=== PATIENT | female | born 1945 | race Caucasian/White ===

== ENCOUNTER 2018-04-17 09:51 | Emergency (ER) | payer MEDICARE ==
[~2018-04-17] VITALS: Ht 165.1 cm; Wt 69.4 kg
[~2018-04-17 09:51] MED LIST: ARICEPT 5 MG TAB5 MG PO; CELEXA20 MG PO; CIPRO500 MG PO; FLAGYL500 MG PO; LEVOTHYROXINE100 MC1 PO; LISINOPRIL10 MG PO; MOBIC15 MG PO; OXYBUTYNIN 5 MG5 M2 PO; PROTONIX40 M1 PO; TYLENOL EXTRA500 MG PO; VITAMIN B COMP1 EACH PO; VITAMIN D1000 UNI1 PO; ZOCOR40 MG PO
[2018-04-17] MEDS ORDERED: MAGOX 400400 MG PO (10:02)
[2018-04-17 10:20] LABS: URINE BILIRUBIN NEGATIVE (Negative); URINE BLOOD TRACE (Negative); URINE CLARITY SL CLOUDY; URINE COLOR YELLOW; URINE GLUCOSE-RANDOM NEGATIVE (Negative); URINE KETONES NEGATIVE (Negative); URINE LEUKOCYTES-REFLEX 1+ (Negative); URINE NITRITE-REFLEX NEGATIVE (Negative); URINE PROTEIN NEGATIVE (Negative); URINE SPECIFIC GRAVITY >= 1.030 (1.005-1.030); URINE UROBILINOGEN 0.2 E.U./dl (0.2-1.0)
[2018-04-17 10:36] LABS: BACTERIA-REFLEX 1-9 Few /HPF (None Seen); CASTS None Seen /LPF (None Seen); CRYSTALS None Seen /LPF (None Seen); MUCUS 4-6 Moderate strn/LPF (None Seen); SQUAMOUS 4-10 Moderate /LPF (0-3); URINE RBC 0-2 Rare /HPF (0-2); URINE WBC-REFLEX 0-5 Rare /HPF (0-5)
[2018-04-17 10:43] LABS: ABSOLUTE EOSINOPHILS 0.2 thou/uL (0.0-0.7); ABSOLUTE MONOCYTES 0.4 thou/uL (0.0-1.2); ABSOLUTE NEUTROPHILS 2.5 thou/uL (1.6-8.1); BASOPHILS 0.8 %; EOSINOPHILS 3.3 %; HEMATOCRIT 37.6 % (37.0-47.0); HEMOGLOBIN 12.6 gm/dL (12.0-15.0); LYMPHOCYTES 39.8 %; MCH 31.5 pg (26.0-34.0); MCHC 33.6 g/dL (28.0-37.0); MCV 93.9 fL (80.0-100.0); MONOCYTES 7.3 %; MPV 6.9 fl. (7.2-11.1); NUCLEATED RBCS 0 /100WBC; PLATELET COUNT* 227 thou/uL (150-400); POLYS 48.8 %; RBC 4.01 mil/uL (4.20-5.00); RDW-CV 12.9 % (10.5-14.5); WBC 5.1 thou/uL (4.0-11.0)
[2018-04-17 10:59] LABS: ANION GAP 6 mmol/L (7-16); BUN 19 mg/dL (7-18); CALCIUM 9.2 mg/dL (8.5-10.1); CHLORIDE 102 mmol/L (98-107); CO2 30 mmol/L (21-32); CREATININE 1.2 mg/dL (0.6-1.3); GLUCOSE 82 mg/dL (70-99); POTASSIUM 3.9 mmol/L (3.5-5.1); SODIUM 138 mmol/L (136-145)
[2018-04-17 11:04] LABS: ALKALINE PHOSPHATASE 74 U/L (46-116); SGOT 26 U/L (15-37); SGPT 22 U/L (30-65); TOTAL BILIRUBIN 1.3 mg/dL (<0.1-1.0); TOTAL PROTEIN 7.5 g/dL (6.4-8.2); TROPONIN-I LEVEL <0.06 ng/mL (<0.06)
[2018-04-17] MEDS ORDERED: ZOFRAN ODT4 MG PO (12:34)
[2018-04-17] MEDS ORDERED: ACETAMINOPHEN-1 EAC1 PO (12:34)
[2018-04-17 13:02] VITALS: BP 131/69
--- NOTE | 2018-04-18 15:36 | EKG ---
[place] [address] ELECTROCARDIOGRAM REPORT Name: CATINA HARPER Room: [facility]#: [id number] Admission: 04/17/18 Attend Phys: Discharge: 04/17/18 Date of : 41 Report #: [id number] THIS REPORT FOR: //name// [facility] ED Test Date: 2018-04-17 Test Time: 10:53:15 Pat Name: CATINA HARPER Department: Room: Gender: F Log Sorting Supervisor: Chapis BRISENO : 1945 Requested By: Amaris Cardoso Order Number: [id number] MD: Ralph Cast Measurements Intervals [place] Rate: 45 P: 49 [place]: 192 QRS: 18 QRSD: 98 T: 46 QT: 499 QTc: 432 Interpretive Statements Sinus bradycardia Baseline wander in lead(s) V3 Compared to ECG 05/03/2017 12:19:55 Sinus rhythm no longer present Electronically Signed On 04-18-2018 15:36:03 WOOLEN TESTER by Ralph Cast [email or web address] <ELECTRONICALLY SIGNED> By: Ralph Cast MD, [facility] 04/18/18 1536 1053 1053 Ralph Cast MD, FACC /EPI
== END 2018-04-17 13:03 | disposition home or self-care (01) ==
LOC: M.ERS 09:51
PROVIDERS: Physician Assistant
DX: K46.9 Unspecified abdominal hernia without obstruction or gangrene (principal); I10 Essential (primary) hypertension; Z88.5 Allergy status to narcotic agent; Z85.3 Personal history of malignant neoplasm of breast; Z90.710 Acquired absence of both cervix and uterus

== ENCOUNTER 2018-05-03 12:53 | Emergency (ER) | payer MEDICARE ==
[~2018-05-03] VITALS: Ht 165.1 cm; Wt 70.3 kg
[~2018-05-03 12:53] MED LIST changes: +ACETAMINOPHEN-1 EAC1 PO; +MAGOX 400400 MG PO; +ZOFRAN ODT4 MG PO
[2018-05-03 13:49] LABS: ABSOLUTE EOSINOPHILS 0.3 thou/uL (0.0-0.7); ABSOLUTE LYMPHOCYTES 1.1 thou/uL (0.8-5.3); ABSOLUTE MONOCYTES 0.6 thou/uL (0.0-1.2); ABSOLUTE NEUTROPHILS 7.6 thou/uL (1.6-8.1); BASOPHILS 0.4 %; EOSINOPHILS 2.9 %; HEMATOCRIT 37.2 % (37.0-47.0); HEMOGLOBIN 12.6 gm/dL (12.0-15.0); LYMPHOCYTES 11.6 %; MCH 31.7 pg (26.0-34.0); MCV 93.1 fL (80.0-100.0); MONOCYTES 6.1 %; MPV 6.9 fl. (7.2-11.1); NUCLEATED RBCS 0 /100WBC; PLATELET COUNT* 225 thou/uL (150-400); RBC 3.99 mil/uL (4.20-5.00); RDW-CV 12.6 % (10.5-14.5); WBC 9.6 thou/uL (4.0-11.0)
[2018-05-03 13:58] LABS: CALCIUM 9.9 mg/dL (8.5-10.1); CREATININE 1.2 mg/dL (0.6-1.3); POTASSIUM 3.5 mmol/L (3.5-5.1)
[2018-05-03 14:33] LABS: ALBUMIN 3.8 g/dL (3.4-5.0); TOTAL BILIRUBIN 1.4 mg/dL (<0.1-1.0); TOTAL PROTEIN 7.8 g/dL (6.4-8.2)
[2018-05-03 15:26] VITALS: BP 157/78
== END 2018-05-03 15:27 | disposition home or self-care (01) ==
LOC: M.ERS 12:53
PROVIDERS: Nurse Practitioner Family
DX: G89.18 Other acute postprocedural pain (principal); R10.9 Unspecified abdominal pain; I10 Essential (primary) hypertension; Z88.5 Allergy status to narcotic agent; Z85.3 Personal history of malignant neoplasm of breast; Z90.710 Acquired absence of both cervix and uterus

== ENCOUNTER → 2018-05-19 | Outpatient (CLI) | payer OTHER | LOC: M.RAD 08:50 | DX: Z12.31 Encounter for screening mammogram for malignant neoplasm of breast (principal) ==

== ENCOUNTER 2018-06-04 12:11 | Inpatient (IN) | payer OTHER ==
[~2018-06-04] VITALS: Ht 165.1 cm; Wt 66.2 kg
[2018-06-04 11:42] VITALS: BP 146/85
[2018-06-04 12:15] VITALS: BP 137/82
[2018-06-04 13:26] LABS: ABSOLUTE BASOPHILS 0.1 thou/uL (0.0-0.2); ABSOLUTE LYMPHOCYTES 1.2 thou/uL (0.8-5.3); ABSOLUTE MONOCYTES 0.6 thou/uL (0.0-1.2); ABSOLUTE NEUTROPHILS 9.6 thou/uL (1.6-8.1); BASOPHILS 0.6 %; EOSINOPHILS 0.4 %; HEMATOCRIT 37.3 % (37.0-47.0); HEMOGLOBIN 12.6 gm/dL (12.0-15.0); LYMPHOCYTES 10.4 %; MCH 30.7 pg (26.0-34.0); MCHC 33.8 g/dL (28.0-37.0); MONOCYTES 5.6 %; NUCLEATED RBCS 0 /100WBC; PLATELET COUNT* 221 thou/uL (150-400); RDW-CV 12.9 % (10.5-14.5); WBC 11.6 thou/uL (4.0-11.0)
[2018-06-04 13:36] LABS: INR 1.1; PROTIME 11.1 Seconds (9.20-11.50)
[2018-06-04 13:38] LABS: ANION GAP 6 mmol/L (7-16); BUN 15 mg/dL (7-18); CALCIUM 9.1 mg/dL (8.5-10.1); CHLORIDE 100 mmol/L (98-107); CO2 29 mmol/L (21-32); CREATININE 1.1 mg/dL (0.6-1.3); GLUCOSE 98 mg/dL (70-99); SODIUM 135 mmol/L (136-145)
[2018-06-04 13:48] LABS: ALBUMIN 3.8 g/dL (3.4-5.0); ALKALINE PHOSPHATASE 90 U/L (46-116); LIPASE 158 U/L (73-393); NT-PRO BRAIN NAT PEPTIDE 127 pg/mL (<300); SGOT 17 U/L (15-37); SGPT 17 U/L (30-65); TOTAL BILIRUBIN 1.3 mg/dL (<0.1-1.0); TOTAL PROTEIN 7.6 g/dL (6.4-8.2); TROPONIN-I LEVEL <0.06 ng/mL (<0.06)
[2018-06-04 16:38] VITALS: BP 144/67
--- NOTE | 2018-06-04 16:54 | EKG ---
[place] [address] ELECTROCARDIOGRAM REPORT Name: CATINA HARPER Room: [address] ADM IN .R.#: [id number] Admission: 06/04/18 Attend Phys: Boone Marino MD Discharge: Date of : 41 Report #: [id number] THIS REPORT FOR: //name// [facility] ED Test Date: 2018-06-04 Test Time: 12:16:42 Pat Name: CATINA HARPER Department: Room: [facility] Gender: Air Dispatcher: Chapis BRISENO : 1945 Requested By: Daniel Alvarado Order Number: [id number] : Adi Jorgensen Measurements Intervals [place] Rate: 54 P: 60 IN: 173 QRS: 24 QRSD: 100 T: 52 QT: 480 QTc: 455 Interpretive Statements Sinus rhythm Nonspecific repol abnormality, diffuse leads Compared to ECG 04/17/2018 10:53:15 Early repolarization now present Sinus bradycardia no longer present Electronically Signed On 06-04-2018 16:54:22 NUISANCE WILDLIFE CONTROL OPERATOR by Adi Jorgensen [email or web address] <ELECTRONICALLY SIGNED> By: Adi Jorgensen MD, [facility] 06/04/18 1654 1216 1216 Adi Jorgensen MD, [facility] /EPI
--- NOTE | 2018-06-04 17:31 | NUR ---
RECIEVIED REPORT FROM KIKO RN IN ER OF EXPECTED ADMISSION AT 1635- DX: SYNCOPE- PT ARRIVED TO UNIT VIA CART AT 1642, SBA TO BED- TIMBER MANAGEMENT ASSISTANT PLACED ORDERED, TRACING SR UPON ADMISSION- PT A&O X3-4, DAUGHTER REPORTS PT TO HAVE DEMENTIA WITH NOTED FORGETFULLNESS- CONTINENT OF BOWEL AND BLADDER WITH OCCASIONLA STRESS INCONTINENTS NOTED- SBA WITH TRANSFERS FOR SAETY- LCTA, DIMINISHED LUNG SOUNDS NOTED- RESP EVEN AND UN-LABORED- VS 98.1 18 146/85 54 96% ON RA- ABD SOFT ROUND NON-TENDER, BS X4 QUADS- PT REPORTS TO HAVE HAD BM THIS AM- 2 ABD HERNIA INCISSIONS NOTED- IV NOTED TO RIGHT FA INTACT AND INTACT- LEFT MASTECTOMY NOTED- REGULAR DIET NOTED WITH GOOD PO INTAKE NOTED WITH DINNER- REPORTS TO WEAR READING GLASSES, NO WITH PT- NOTED TO HAVE UPPER DENTURES IN CUP AT BEDSIDE- SKIN C/D/I- PT DENIES ANY C/O PAIN/DISCOMFORT AT THIS TIME- CALL LIGHT AND PERSONAL BELONGINGS WITH IN REACH- HOURLY ROUNDS IN PLACE R/T SAFETY/NEEDS- ALL NEEDS MET AT THIS TIME-[facility]
[2018-06-04 19:10] VITALS: BP 127/50
--- NOTE | 2018-06-04 22:20 | NUR ---
ASSESSMENT COMPLETE, REFER TO CHARTING FOR DETAILS. TRACING SR ON MONITOR. PT C/O MILD ABDOMINAL PAIN. UP WITH SBA TO BR. VSS. PT DENIES ANY FURTHER NEEDS. HOURLY ROUNDING AND FALL PRECAUTIONS IN PLACE FOR SAFETY. CLWR.
[2018-06-04 23:36] VITALS: BP 144/70
[2018-06-04 23:37] VITALS: BP 151/73; BP 153/73
[2018-06-05 04:00] VITALS: BP 141/64
[2018-06-05 05:07] LABS: ABSOLUTE LYMPHOCYTES 1.7 thou/uL (0.8-5.3); ABSOLUTE MONOCYTES 0.6 thou/uL (0.0-1.2); ABSOLUTE NEUTROPHILS 6.6 thou/uL (1.6-8.1); BASOPHILS 0.2 %; EOSINOPHILS 0.4 %; HEMATOCRIT 34.8 % (37.0-47.0); LYMPHOCYTES 18.5 %; MCH 31.5 pg (26.0-34.0); MCHC 34.5 g/dL (28.0-37.0); MCV 91.5 fL (80.0-100.0); MONOCYTES 6.8 %; MPV 7.5 fl. (7.2-11.1); NUCLEATED RBCS 0 /100WBC; PLATELET COUNT* 195 thou/uL (150-400); POLYS 74.1 %; RBC 3.81 mil/uL (4.20-5.00); RDW-CV 12.7 % (10.5-14.5); WBC 8.9 thou/uL (4.0-11.0)
[2018-06-05 05:21] LABS: CALCIUM 8.8 mg/dL (8.5-10.1)
--- NOTE | 2018-06-05 05:26 | NUR ---
PT HAS RESTED COMFORTABLY T/O THIS SHIFT. ORTHOSTATICS NEGATIVE. CONTINUES TRACING SR ON MONITOR. NO NEW CONCERNS AT THIS TIME. FALL PRECAUTIONS IN PLACE. CLWR.
[2018-06-05 05:28] LABS: POTASSIUM 4.4 mmol/L (3.5-5.1)
[2018-06-05 08:00] VITALS: BP 123/58
--- NOTE | 2018-06-05 11:58 | NUR ---
ASSUMED PT CARE AT 0730 REPORT RECEIVED FROM NURSE PT IS AOX4 FORGRTFUL AND LETHARGIC. COMPLAINS OF DISCOMFORT IN MID ABDOMINAL AREA. VSS. O2 SATURATION ABOVE 95% ON RA. PT LACK APPETITE AND DID NOT CONSUME HER BREAKFAST. DR PERALES IN OOM WITH PT ORDERED CT OF ABM AND PELVIS. PT LEFT FLOOR FOR EXAM AT 0930 AM. PT HAS NO OTHER COMPLAINT AND IS RESTING IN BED. PT HAD ONE EPISODE OF LOOSED STOOL THIS AM. WILL CONTINUE TO MONITOR
[2018-06-05 12:10] VITALS: BP 133/56
[2018-06-05 12:31] VITALS: BP 133/56
[2018-06-05 12:33] VITALS: BP 133/56
[2018-06-05] MEDS ORDERED: PRILOSEC OTC20 MG PO (12:43)
--- NOTE | 2018-06-05 13:52 | NUR ---
INITIAL ASSESSMENT: Pt evaluated for d/c planning needs. Reviewed chart and spoke with nurse and pt. Pt states she lives in house with daughter and was independent with ADL's prior to admission to the hospital. Pt said she uses no DME and has not had home health in the past. Pt plans on returning home on d/c from hospital. Will remain available to assist as needed.
--- NOTE | 2018-06-05 14:16 | CON ---
[address] [address] CONSULTATION Name: MEREDITHCATINA Mychal Room: [address] IN .R.#: [id number] Admission: 06/04/18 Attend Phys: Boone Marino MD Discharge: Date of : 41 Report #: [id number] THIS REPORT FOR: //name// CC: Boone Anne HISTORY OF PRESENT ILLNESS: The patient is a 73-year-old female who was at the book store when she began to experience abdominal pain. The patient has a history of hernia repair in 04/2018. She states that she had pain in her abdomen. She then felt lightheaded. This is the last thing she remembers, she then passed out. I tried to call the patient's daughter, but the call went to voicemail. According to the information in the Emergency Room, the daughter states that the patient's eyes rolled back, although they were open. She then began to shake in her arms and legs and then passed out for a minute or so. Afterward, she returned to normal. The patient has never had an event like this in the past. She typically does not feel lightheaded. She does not feel lightheaded when she stands up. She has no difficulty having her blood drawn. PAST MEDICAL HISTORY: Graves' disease, breast cancer, hypertension, hypothyroidism, arthritis. PAST SURGICAL HISTORY: Back surgery, hysterectomy, carpal tunnel release, left rotator cuff repair, hernia surgery. MEDICATIONS: Levothyroxine 100 mcg daily, lisinopril 10 mg daily, donepezil 10 mg at bedtime, Celexa 20 mg daily, magnesium 400 mg at bedtime, Mobic 15 mg daily. ALLERGIES: OXYCODONE. VITAL SIGNS: Temperature is 36.7, pulse rate 57, respiratory rate 16, blood pressure 144/67, pulse rate 96 on 2 liters nasal cannula. LABORATORY DATA: Hematology: White blood cell count 11.6, hemoglobin 12.6, hematocrit 37.3, MCV 91, platelet count 221,000. INR 1.1. Chemistry: Sodium 135, potassium 3, chloride 100, carbon dioxide 29, BUN 15, creatinine 1.1, glucose 98, total bilirubin 1.3. The remainder of the liver functions were normal. Lipase 158. IMAGING STUDIES: MRI of the head demonstrates age-related findings including mild cerebral and cerebellar volume loss and mild microvascular disease. NEUROLOGIC: Cranial nerves 2-12 are grossly intact[place] [address] CONSULTATION Name: ACTINA HARPER Room: [address]#: [id number] Admission: 06/04/18 Attend Phys: Boone Marino MD Discharge: Date of : 41 Report #: [id number] symmetrical strength in all 4 extremities with tone and bulk normal. Reflexes are trace. Plantar responses are flexor. Coordination demonstrates intact [id number]. IMPRESSION AND PLAN: This episode is most consistent with some type of vasovagal event. Just because there is shaking of the extremities does not make this a seizure. What is against this being a seizure is that she was alert after she woke up. If this had been a seizure, she would have been confused. However, I have ordered an EEG for tomorrow morning. The patient also has a history of dementia and is on donepezil. I will order a TSH and B12. I thank you for your kind referral of the patient and will continue to follow her with you. <ELECTRONICALLY SIGNED> By: Letty Rossi DO 06/05/18 141 31 34Letty Rossi DO /nt
--- NOTE | 2018-06-05 14:16 | EEG ---
[address] [address] EEG STUDY REPORT Name: CATINA HARPER Room: [address] IN M.R.#: [id number] Admission: 06/04/18 Attend Phys: Boone Marino MD Discharge: Date of : 41 Report #: [id number] THIS REPORT FOR: //name// CC: Boone Anne The patient is a 73-year-old female who had a syncopal episode accompanied by jerking of the extremities while she was at the bookstore. An EEG is requested for further evaluation. DESCRIPTION: The awake record consists of symmetric moderate amplitude 10-cycle per second posterior dominant rhythm, which attenuates with eye opening. Stage 1 sleep was characterized by attenuation of the background record. Photic stimulation was non-activating. No focal abnormalities or epileptiform discharges were noted. IMPRESSION: This is a normal adult awake and asleep record. No focal abnormalities or epileptiform discharges were noted. It should be noted that a normal electroencephalogram does not rule out a seizure disorder. <ELECTRONICALLY SIGNED> By: Letty Rossi DO 06/05/18 1416 1401 1410Ymagui Rossi DO /nt
[2018-06-05] MEDS ORDERED: VITAMIN B-12500 MC5 PO (14:59)
[2018-06-05 15:40] VITALS: BP 133/56
--- NOTE | 2018-06-05 15:41 | NUR ---
PT DID NOT REQUIRE ANY PAIN MEDICINE. NURSE OFFERED BUT PT SAYS NO. DISCHARGE ORDERED. DR LLAMAS SAW PT AT BEDSIDE,AND ORDERDE VIT B12 WHICH WAS GIVEN ORDERED. ALSO ADDEDD VT B12 TO MEDICATION LIST TO GO HOME. DC INTRUCTIONS GIVEN TO PT AND SON IN LAW. PT STATED UNDERSTANDING. OK FROM CARDIO TO DC WELL. PT TRANSPORTED VIA WHEELCHAIR BY NURSE. LEFT FLOOR AT 1530 BELONGINGS SHIVAM ALONG. IV LINE DC. X RAY SERVICE TECHNICIAN REMOVED.
--- NOTE | 2018-06-07 12:47 | CON ---
[address] [address] CONSULTATION Name: MEREDITHCATINA Mychal Room: [address] IN M.R.#: [id number] Admission: 06/04/18 Attend Phys: Boone Marino MD Discharge: 06/05/18 Date of : 41 Report #: [id number] THIS REPORT FOR: //name// CC: Boone Anne INDICATION: Syncope. HISTORY OF PRESENT ILLNESS: The patient is a very pleasant 73-year-old white female who had an episode while shopping with her daughter where she began to experience some abdominal discomfort. At that time, she then had what sounds like a syncopal episode. She was without injury to this event. The patient apparently was somewhat unconscious for several seconds after the incident. She has no prior episodes like this and has had none since being admitted to the hospital. Telemetry monitoring shows sinus rhythm and sinus bradycardia. Blood pressure is stable. She is not having any symptoms to suggest orthostasis. She is without other cardiac complaint. PAST MEDICAL HISTORY: 1. Hypertension. 2. Graves disease. 3. Previous hernia surgery. 4. Carpal tunnel surgery. 5. Rotator cuff repair, left. 6. Chronic back pain. 7. Hysterectomy. 8. History of breast cancer 23 years ago. CURRENT MEDICATIONS: Lisinopril 10 mg daily, Aricept 5 mg 2 tablets at bedtime, Synthroid 112 mcg daily, Celexa 30 mg daily, magnesium oxide daily, meloxicam 15 mg daily. ALLERGIES: OXYCODONE. REVIEW OF SYSTEMS: Positive for history of breast cancer, allergies to oxycodone, history of osteoarthritis, and hypothyroidism. Otherwise, 14-point review of systems is unremarkable. PHYSICAL EXAMINATION: VITAL SIGNS: Blood pressure 123/58, pulse 64 and regular. GENERAL: This is a pleasant elderly female in no distress. Mood and affect appropriate. HEENT: Extraocular muscles intact. Mucous membranes moist. NECK: Shows no jugular venous distention. There are no carotid bruits. CHEST: Reveals clear lung mccarty. CARDIAC: Reveals regular rhythm with normal S1 and S2[place] [address] CONSULTATION Name: CATINA HARPER Room: [address] IN [facility]#: [id number] Admission: 06/04/18 Attend Phys: Boone Marino MD Discharge: 06/05/18 Date of : 41 Report #: [id number] gallop or murmur. ABDOMEN: Reveals diffuse tenderness without significant rebound. Bowel sounds present. EXTREMITIES: Show no edema. SKIN: Warm and dry. A 12-lead EKG shows sinus rhythm without acute ST or T-wave abnormality. LABORATORY DATA: Reviewed. Basic metabolic profile within normal limits. IMPRESSION AND RECOMMENDATIONS: 1. Single episode that sounds like a vasovagal syncope. She has had no recurrence. At this point in time, I would not recommend further evaluation or treatment. Should she have recurrent syncope, we could at that time consider a 30-day event monitoring. 2. Hypertension, adequately controlled on current dose of lisinopril. 3. Mild bradycardia. Presently stable. 4. Chronic abdominal pain per primary physician. At this point in time, the patient appears stable from a cardiac standpoint. We will follow as needed. <ELECTRONICALLY SIGNED> By: Ralph Cast MD, FACC 06/07/18 1247 1056 1536Micjesus Cast MD, FACC /nt
== END 2018-06-05 15:30 | disposition still patient (30) | DRG 392 ==
LOC: M.ERS 12:11 → M.TBA-ER 15:26 → M.2W 16:51
PROVIDERS: Emergency Medicine; ADMIT Internal Medicine
DX: A08.4 Viral intestinal infection, unspecified (principal); E03.9 Hypothyroidism, unspecified; I10 Essential (primary) hypertension; M19.90 Unspecified osteoarthritis, unspecified site; F03.90 Unspecified dementia, unspecified severity, without behavioral disturbance, psychotic disturbance, mood disturbance, and anxiety; R55 Syncope and collapse; G89.29 Other chronic pain; M54.9 Dorsalgia, unspecified; R10.9 Unspecified abdominal pain; R00.1 Bradycardia, unspecified; E87.6 Hypokalemia; E86.0 Dehydration; Z85.3 Personal history of malignant neoplasm of breast; Z90.710 Acquired absence of both cervix and uterus; Z88.6 Allergy status to analgesic agent; Z79.899 Other long term (current) drug therapy

== ENCOUNTER 2018-07-01 06:58 | Emergency (ER) | payer OTHER ==
[~2018-07-01] VITALS: Ht 165.1 cm; Wt 63.5 kg
[~2018-07-01 06:58] MED LIST changes: +PRILOSEC OTC20 MG PO; +VITAMIN B-12500 MC5 PO
[2018-07-01 08:01] LABS: ABSOLUTE EOSINOPHILS 0.1 thou/uL (0.0-0.7); ABSOLUTE LYMPHOCYTES 1.5 thou/uL (0.8-5.3); ABSOLUTE MONOCYTES 0.8 thou/uL (0.0-1.2); ABSOLUTE NEUTROPHILS 7.2 thou/uL (1.6-8.1); BASOPHILS 0.5 %; EOSINOPHILS 0.7 %; HEMATOCRIT 36.2 % (37.0-47.0); HEMOGLOBIN 12.2 gm/dL (12.0-15.0); MCH 30.9 pg (26.0-34.0); MCHC 33.7 g/dL (28.0-37.0); MCV 91.8 fL (80.0-100.0); MONOCYTES 8.5 %; MPV 6.7 fl. (7.2-11.1); NUCLEATED RBCS 0 /100WBC; PLATELET COUNT* 244 thou/uL (150-400); POLYS 74.3 %; RBC 3.95 mil/uL (4.20-5.00); RDW-CV 12.8 % (10.5-14.5); WBC 9.7 thou/uL (4.0-11.0)
[2018-07-01 08:10] LABS: ANION GAP 8 mmol/L (7-16); BUN 16 mg/dL (7-18); CALCIUM 8.3 mg/dL (8.5-10.1); CHLORIDE 102 mmol/L (98-107); CO2 27 mmol/L (21-32); CREATININE 1.4 mg/dL (0.6-1.3); GLUCOSE 84 mg/dL (70-99); SODIUM 137 mmol/L (136-145)
[2018-07-01 08:16] LABS: ALBUMIN 3.3 g/dL (3.4-5.0); ALKALINE PHOSPHATASE 86 U/L (46-116); LIPASE 148 U/L (73-393); SGOT 18 U/L (15-37); SGPT 25 U/L (30-65); TOTAL BILIRUBIN 1.2 mg/dL (<0.1-1.0); TOTAL PROTEIN 7.1 g/dL (6.4-8.2); TROPONIN-I LEVEL <0.06 ng/mL (<0.06)
[2018-07-01] MEDS ORDERED: HYDROCODONE-AP1 EAC6 PO (09:27)
[2018-07-01] MEDS ORDERED: AUGMENTIN 875-1 EACH PO (09:27)
[2018-07-01] MEDS ORDERED: HYDROCORTISONE30 G9 RECTAL (09:27)
[2018-07-01 09:39] VITALS: BP 109/56
--- NOTE | 2018-07-01 13:12 | EKG ---
[place] [address] ELECTROCARDIOGRAM REPORT Name: CATINA HARPER [id number] Admission: 07/01/18 Attend Phys: Discharge: 07/01/18 Date of : 41 Report #: [id number] THIS REPORT FOR: //name// [facility] ED Test Date: 2018-07-01 Test Time: 07:31:45 Pat Name: CATINA HARPER Department: Room: Gender: F Loftsman/Woman: Chapis BRISENO : 1945 Requested By: Hal Garrett Order Number: [id number] MD: Braden Vivar Measurements Intervals [place] Rate: 51 P: 62 VT: 192 QRS: 32 QRSD: 102 T: 64 QT: 477 QTc: 440 Interpretive Statements Sinus bradycardia Compared to ECG 06/04/2018 12:16:42 no change Electronically Signed On 07-01-2018 13:12:22 PRINTED CIRCUIT BOARD DRAFTER by Braden Vivar [email or web address] <ELECTRONICALLY SIGNED> By: Braden Vivar MD, [facility] 07/01/18 1312 0731 0731 Braden Vivar MD, FACC /EPI
== END 2018-07-01 09:40 | disposition home or self-care (01) ==
LOC: M.ERS 06:58
PROVIDERS: Emergency Medicine Emergency Medical Services
DX: K64.8 Other hemorrhoids (principal); R10.84 Generalized abdominal pain; I10 Essential (primary) hypertension; Z88.8 Allergy status to other drugs, medicaments and biological substances; Z85.3 Personal history of malignant neoplasm of breast; Z90.710 Acquired absence of both cervix and uterus

== ENCOUNTER 2018-12-15 09:43 | Inpatient (IN) | payer OTHER ==
[~2018-12-15] VITALS: Ht 152.4 cm; Wt 60.3 kg
[2018-12-15] VITALS (7 sets, daily range): BP systolic 116–154; BP diastolic 52–68
--- NOTE | ~2018-12-15 | CON ---
[address] [address] CONSULTATION Name: CATINA HARPER Room: [address] IN .R.#: [id number] Admission: 12/15/18 Attend Phys: Leena Carroll MD Discharge: Date of : 41 Report #: [id number] THIS REPORT FOR: //name// CC: Leena Anne YEAST STACKER DICTATED BY: Coby Mortensen [facility] DATE OF SERVICE: 12/16/2018 Please note at the time of this dictation, the patient was seen and physically examined by myself. REASON FOR CONSULTATION: Abdominal pain, anorexia. HISTORY OF PRESENT ILLNESS: This is a pleasant 73-year-old female who presented after having a slight syncopal episode with some losing consciousness yesterday at home. Family reports that they are very concerned about her that she is not eating and drinking very much for the last several weeks. She states she is having some upper abdominal discomfort ache, especially when she eats and drinks. She states she has been having some watery diarrhea. She denies any bright red blood or black noted in her stool. She states the watery diarrhea has been going on for some time. She states when she does eat, it does make the pain worse in her upper part of her abdomen. She denies any difficulty swallowing liquids or solids. She has lost weight over the last year, which has been unintentional. The patient did have an EGD with [facility] back in April 2017 that showed some gastritis, negative for H. pylori. She states she has had a colon, but it has been many years ago and she does not recall where it has been done. ALLERGIES: PERCOCET AND ACETAMINOPHEN. MEDICATIONS: From home include meloxicam, Lisinopril, ____, levothyroxine, citalopram, simvastatin, magnesium oxalate, colestipol and potassium chloride. PAST MEDICAL HISTORY: Dementia, hypothyroidism, diverticulosis, hemorrhoids, hyperlipidemia, B12 deficiency and breast cancer 23 years ago. PAST SURGICAL HISTORY: Cholecystectomy, abdominal hernia repair, hysterectomy, rotator cuff and back surgery. SOCIAL HISTORY: She lives at home with her daughter and son-in-law and 2 granddaughters. She denies any alcohol, tobacco or illegal drug use. FAMILY HISTORY: Mother had breast cancer, otherwise [place] [address] CONSULTATION Name: CATINA HARPER Room: [address] IN [facility]#: [id number] Admission: 12/15/18 Attend Phys: Leena Carroll MD Discharge: Date of : 41 Report #: [id number] or female cancers. REVIEW OF SYSTEMS: Twelve-point review of systems is essentially negative except what is mentioned in the HPI. PHYSICAL EXAMINATION: VITAL SIGNS: Temperature 36.5, pulse 68, respirations 14, blood pressure 129/68. HEART: Regular rate and rhythm. LUNGS: Clear, but slightly diminished. ABDOMEN: Soft, positive bowel sounds in all 4 quadrants with epigastric and left lower quadrant tenderness noted to palpation. LABORATORY DATA: Hemoglobin is 11.2, white count is 9.1, platelets 268. GFR is 44. CT showed sigmoid diverticulosis, otherwise negative. IMPRESSION: 1. Epigastric pain. 2. Left lower quadrant pain. 3. Loose stools. 4. Anorexia. 5. Weight loss. 6. Personal history and family history of breast cancer. PLAN: 1. EGD colon tomorrow. 2. Clear liquids today. 3. Further recommendations to be made once the procedure has been performed. Thank you for allowing us to participate in this patient's care. Please do not hesitate to call with any questions in regard to this consult. By: 1152 [id number] Ramos MD /nt
[~2018-12-15 09:43] MED LIST changes: +AUGMENTIN 875-1 EACH PO; +HYDROCODONE-AP1 EAC6 PO; +HYDROCORTISONE30 G9 RECTAL
[2018-12-15] MEDS ORDERED: ZOCOR20 MG PO (09:59)
[2018-12-15] MEDS ORDERED: COLESTIPOL HCL1 G1 PO (10:00)
[2018-12-15] MEDS ORDERED: KLOR-CON 1010 MEQ PO (10:00)
[2018-12-15] MEDS ORDERED: MOBIC15 MG PO (10:00)
[2018-12-15] MEDS ORDERED: BIOTIN1 M1 PO (10:01)
[2018-12-15 10:18] LABS: HEMATOCRIT 38.7 % (37.0-47.0); HEMOGLOBIN 13.1 gm/dL (12.0-15.0); MCH 30.6 pg (26.0-34.0); MCHC 33.8 g/dL (28.0-37.0); MCV 90.4 fL (80.0-100.0); MPV 6.5 fl. (7.2-11.1); NUCLEATED RBCS 0 /100WBC; PLATELET COUNT* 375 thou/uL (150-400); RBC 4.28 mil/uL (4.20-5.00); RDW-CV 12.6 % (10.5-14.5); WBC 15.4 thou/uL (4.0-11.0)
[2018-12-15 10:31] LABS: ANION GAP 10 mmol/L (7-16); BUN 24 mg/dL (7-18); CALCIUM 9.6 mg/dL (8.5-10.1); CHLORIDE 95 mmol/L (98-107); CO2 29 mmol/L (21-32); CREATININE 1.7 mg/dL (0.6-1.3); GLUCOSE 122 mg/dL (70-99); SODIUM 134 mmol/L (136-145)
[2018-12-15 10:37] LABS: ABSOLUTE LYMPHOCYTES 1.1 thou/uL (0.8-5.3); ABSOLUTE MONOCYTES 0.5 thou/uL (0.0-1.2); ABSOLUTE NEUTROPHILS 13.9 thou/uL (1.6-8.1); PLATELET ESTIMATE ADEQUATE
[2018-12-15 10:42] LABS: ALBUMIN 3.3 g/dL (3.4-5.0); ALKALINE PHOSPHATASE 112 U/L (46-116); LIPASE 150 U/L (73-393); MAGNESIUM 1.7 mg/dL (1.8-2.4); NT-PRO BRAIN NAT PEPTIDE 107 pg/mL (<300); SGOT 20 U/L (15-37); SGPT 16 U/L (30-65); TOTAL BILIRUBIN 1.1 mg/dL (<0.1-1.0); TOTAL PROTEIN 8.5 g/dL (6.4-8.2); TROPONIN-I LEVEL <0.06 ng/mL (<0.06)
[2018-12-15 10:48] LABS: URINE BILIRUBIN NEGATIVE (Negative); URINE BLOOD NEGATIVE (Negative); URINE CLARITY CLEAR; URINE COLOR YELLOW; URINE GLUCOSE-RANDOM NEGATIVE (Negative); URINE KETONES NEGATIVE (Negative); URINE LEUKOCYTES-REFLEX NEGATIVE (Negative); URINE NITRITE-REFLEX NEGATIVE (Negative); URINE PROTEIN 2+ (Negative); URINE SPECIFIC GRAVITY 1.025 (1.005-1.030); URINE UROBILINOGEN 0.2 E.U./dl (0.2-1.0)
[2018-12-15 10:57] LABS: BACTERIA-REFLEX 1-9 Few /HPF (None Seen); CRYSTALS None Seen /LPF (None Seen); HYALINE CASTS 4-10 Moderate /LPF (None Seen); MUCUS 0-3 Light strn/LPF (None Seen); SQUAMOUS 4-10 Moderate /LPF (0-3); URINE RBC 0-2 Rare /HPF (0-2); URINE WBC-REFLEX 0-5 Rare /HPF (0-5)
[2018-12-15 13:13] LABS: CALCIUM 9.3 mg/dL (8.5-10.1); CREATININE 1.7 mg/dL (0.6-1.3); POTASSIUM 3.2 mmol/L (3.5-5.1)
--- NOTE | 2018-12-15 14:51 | EKG ---
[place] [address] ELECTROCARDIOGRAM REPORT Name: CATINA HARPER Room: [address] ADM IN .R.#: [id number] Admission: 12/15/18 Attend Phys: Leena Carroll MD Discharge: Date of : 41 Report #: [id number] THIS REPORT FOR: //name// [facility] ED Test Date: 2018-12-15 Test Time: 09:59:34 Pat Name: CATINA HARPER Department: Room: [facility] Gender: F Sales Leader: : 1945 Requested By: Daniel Alvarado Order Number: [id number] MD: Adi Jorgensen Measurements Intervals [place] Rate: 59 P: 78 IN: 161 QRS: 59 QRSD: 102 T: 66 QT: 617 QTc: 612 Interpretive Statements Sinus rhythm Prolonged QT interval Compared to ECG 07/01/2018 07:31:45 Prolonged QT interval now present Sinus bradycardia no longer present Electronically Signed On 12-15-2018 14:51:33 CDT by Adi Jorgensen [email or web address] <ELECTRONICALLY SIGNED> By: Adi Jorgensen MD, [facility] 12/15/18 1451 0959 0959 Adi Jorgensen MD, [facility] /EPI
--- NOTE | 2018-12-15 16:12 | 2DMMODE ---
[place] [address] 2 D/M-MODE ECHOCARDIOGRAM Name: CATINA HARPER Mychal Room: [address] IN [facility]#: [id number] Admission: 12/15/18 Attend Phys: Leena Carroll, Discharge: Date of : 41 Date of Service: 12/15/18 1612 Report #: [id number] THIS REPORT FOR: //name// APPROVED REPORT Study performed: 12/15/2018 14:43:59 EXAM: Comprehensive 2D, Doppler, and color-flow Echocardiogram Patient Location: In-Patient Room #: 220 Status: routine BSA: 1.59 HR: 56 bpm BP: 125/58 mmHg Rhythm: NSR Other Information Study Quality: Good Indications Arrhythmia 2D Dimensions IVSd: 9.04 (7-11mm) LVOT Diam: 19.13 (18-24mm) LVDd: 40.31 mm PWd: 9.50 (7-11mm) LVDs: 22.96 (25-40mm) Aortic Root: 31.19 mm Volumes Left Atrial Volume (Systole) LA ESV Index: 26.30 mL/m2 Aortic Valve AoV Peak Fredo.: 1.39 m/s AO Peak Gr.: 7.77 mmHg LVOT Max P.42 mmHg AO Mean Gr.: 3.91 mmHg LVOT Mean P.15 mmHg LVOT Max V: 1.36 m/s AO V2 VTI: 31.47 cm LVOT Mean V: 0.80 m/s RAVEN (VTI): 2.68 cm2 LVOT V1 VTI: 29.39 cm Mitral Valve E/A Ratio: 1.06 MV Decel. Time: 196.83 ms MV E Max Fredo.: 0.74 m/[place] [address] 2 D/M-MODE ECHOCARDIOGRAM Name: CATINA HARPER Room: [address] IN .R.#: [id number] Admission: 12/15/18 Attend Phys: Leena Carroll, Discharge: Date of : 41 Date of Service: 12/15/18 1612 Report #: [id number] MV PHT: 57.08 ms MVA (PHT): 3.85 cm2 TDI E/Lateral E': 6.73 E/Medial E': 6.73 Medial E' Fredo.: 0.11 m/s Lateral E' Fredo.: 0.11 m/s Pulmonary Valve PV Peak Fredo.: 1.01 m/s PV Peak Gr.: 4.12 mmHg Tricuspid Valve RAP Estimate: 5.00 mmHg TR Peak Gr.: 26.86 mmHg RVSP: 31.00 mmHg PA Pressure: 31.00 mmHg Left Ventricle The left ventricle is normal size. There is normal LV segmental wall motion. There is normal left ventricular wall thickness. Left ventricular systolic function is normal. The left ventricular ejection fraction is within the normal range. LVEF is 60%. The left ventricular diastolic function is normal. Right Ventricle The right ventricle is normal size. The right ventricular systolic function is normal. Atria The left atrium size is normal. The right atrium size is normal. Aortic Valve Mild aortic valve sclerosis. No aortic regurgitation is present. There is no aortic valvular stenosis. Mitral Valve The mitral valve is normal in structure. Trace mitral regurgitation. No evidence of mitral valve stenosis. Tricuspid Valve The tricuspid valve is normal in structure. Trace tricuspid regurgitation. Mild pulmonary hypertension. Pulmonic Valve The pulmonary valve is normal in structure. There is no pulmonic [place] [address] 2 D/M-MODE ECHOCARDIOGRAM Name: CATINA HARPER Room: [address]#: [id number] Admission: 12/15/18 Attend Phys: Leena Carroll, Discharge: Date of : 41 Date of Service: 12/15/18 1612 Report #: [id number] Great Vessels The aortic root is normal in size. IVC is normal in size and collapses >50% with inspiration. Pericardium There is no pericardial effusion. <Conclusion> The left ventricle is normal size. There is normal left ventricular wall thickness. Left ventricular systolic function is normal. The left ventricular ejection fraction is within the normal range. LVEF is 60%. The right ventricle is normal size. The left atrium size is normal. Mild aortic valve sclerosis. No aortic regurgitation is present. There is no aortic valvular stenosis. The mitral valve is normal in structure. Trace mitral regurgitation. The tricuspid valve is normal in structure. IVC is normal in size and collapses >50% with inspiration. There is no pericardial effusion. There is normal LV segmental wall motion. <ELECTRONICALLY SIGNED> By: Adi Jorgensen MD, FACC 12/15/18 161 11 11 Adi Jorgensen MD, FACC /INF
--- NOTE | 2018-12-15 18:49 | NUR ---
PT ADMITTED ON TELE FLOOR. ON RA TRACING SBRADY ON DRILL DOCTOR . VSS ORTHOSTATIC BP MEASURED. SEE CHART. RESULT WAS NEGATIVE. PT COMPLAINTS OF PAIN IN ABDOMEN. FENTANYL GIVNE. PT ALSO HAS NAUSEA AND DIARRHEA THAT STARTED AT AROUND 1500 ,. STOOL SAMPLE COLLECTED TO BE TESTED FOR CDIFF. NAUSEA PILL GIVEN . ELECTROLYTES REPLACED. ISOLATION STARTED FOR POSSIBLE CDIFF. PT DENIES NAUSEA AND PAIN AT THIS TIME. WILL CONTINUE TO MONITOR
[2018-12-16] VITALS (8 sets, daily range): BP systolic 121–165; BP diastolic 52–80
[2018-12-16 05:12] LABS: HEMATOCRIT 32.9 % (37.0-47.0); HEMOGLOBIN 11.2 gm/dL (12.0-15.0); MCH 31.4 pg (26.0-34.0); MCHC 34.1 g/dL (28.0-37.0); MCV 91.9 fL (80.0-100.0); MPV 7.2 fl. (7.2-11.1); RBC 3.58 mil/uL (4.20-5.00); RDW-CV 12.3 % (10.5-14.5); WBC 9.1 thou/uL (4.0-11.0)
[2018-12-16 05:14] LABS: CALCIUM 8.5 mg/dL (8.5-10.1); CREATININE 1.2 mg/dL (0.6-1.3); MAGNESIUM 1.8 mg/dL (1.8-2.4); POTASSIUM 3.6 mmol/L (3.5-5.1)
--- NOTE | 2018-12-16 06:53 | NUR ---
VSS. SEE MAR. SEE CHARTING. FALL PRECAUTIONS IN PLACE. HOURLY ROUNDING FOR SAFETY.
--- NOTE | 2018-12-16 12:10 | EKG ---
[place] [address] ELECTROCARDIOGRAM REPORT Name: CATINA HARPER Room: [address] ADM IN M.R.#: [id number] Admission: 12/15/18 Attend Phys: Leena Carroll MD Discharge: Date of : 41 Report #: [id number] THIS REPORT FOR: //name// [facility] Test Date: 2018-12-16 Test Time: 10:31:25 Pat Name: CATINA HARPER Department: Room: [address] Gender: F Insurance Adjustor: : 1945 Requested By: Hector Chandler Order Number: [id number] MD: Adi Jorgensen Measurements Intervals [place] Rate: 55 P: 68 GA: 161 QRS: 42 QRSD: 99 T: 42 QT: 494 QTc: 473 Interpretive Statements Sinus rhythm Compared to ECG 12/15/2018 09:59:34 Prolonged QT interval no longer present Electronically Signed On 12-16-2018 12:10:24 CDT by Adi Jorgensen [email or web address] <ELECTRONICALLY SIGNED> By: Adi Jorgensen MD, [facility] 12/16/18 1210 1030 30 Adi Jorgensen MD, FACC /EPI
--- NOTE | 2018-12-16 13:41 | NUR ---
Pt is A&O. Resides at home with her dtr, JESSICA and grandkids. Independent. Pt states that someone gave her a walker, but states that she does not currently need to use it. No hx of HH or SNF. Pt's [place] Following.
--- NOTE | 2018-12-16 14:53 | NUR ---
ASSUMED PT CARE REPORT RECEIVED FROM NURSE. PT IS AOX4. ON RA, O2 SATURATION IS 94%. TRACING SINUS TESHA ON CARIAC MONITOR. PT HELPED OUT OF BED TO CHAIR. PT TOLORATED CLEAR LIQUID DIET WELL. NO N/V. ONE EPISODE OF DIARRHEA THIS MORNING. CDIFF LAB PENDING. PT THEN COMPLAINS OF PAIN IN ADOMEN AREA. FENTANYL WAS GIVEN. NO MORE PAIN AT THIS TIME. GI SAW PT IN ROOM. BOWEL PREP STARTED ORDERED. WILL CONTINUE TO MONITOR.
[2018-12-17] VITALS: BP 131/69
[2018-12-17 04:00] VITALS: BP 122/68
--- NOTE | 2018-12-17 05:28 | NUR ---
PATIENT PROGRESSING TOWARDS GOALS: VSS ON ROOM AIR. PAIN MEDICATION GIVEN PER MAR ONE TIME FOR ABDOMINAL PAIN. RELIEF OBTAINED. PATIENT FINISHED MOST OF GOLYTELY, REFUSING TO FINISH LAST BIT OF IT, HOWEVER, STOOLS ARE CLEAR. PATIENT'S BOTTOM RAW FROM DIARRHEA, BARRIER CREAM PROVIDED. PATIENT INCONTINENT OF STOOL AT TIMES, VANDANA CARE PROVIDED. CALL LIGHT WITHIN REACH
[2018-12-17 07:50] VITALS: BP 159/75
[2018-12-17 10:09] VITALS: BP 159/75
[2018-12-17 16:37] VITALS: BP 150/73
[2018-12-17 19:50] VITALS: BP 136/65
[2018-12-17 20:25] LABS: CALCIUM 8.6 mg/dL (8.5-10.1); CREATININE 1.1 mg/dL (0.6-1.3); MAGNESIUM 1.5 mg/dL (1.8-2.4)
[2018-12-18] VITALS: BP 126/69
[2018-12-18 04:00] VITALS: BP 129/56
--- NOTE | 2018-12-18 05:53 | NUR ---
PATIENT PROGRESSING TOWARDS GOALS: PATIENT STATES HER PAIN IS TOLERABLE OVERNIGHT WITHOUT PAIN MEDICATION. PATIENT DENIES NAUSEA. SHE DOES CONTINUE TO HAVE DIARRHEA. ELECTROLYTES BEING REPLACED VIA IV DUE TO DIARRHEA. CALL LIGHT WITHIN REACH
--- NOTE | 2018-12-18 08:00 | NUR ---
ASSUMED CARE OF PT AT 7AM AFTER SHIFT REPORT. PT A/O X 4. ASSESSMENT AND VS PERFORMED CHARTED. PT C/O LOOSE STOOLS. ABDOMEN IS SOFT AND FLAT WITH NO DISTENSION. PT DENIES PAIN AT THIS TIME. PT HAD A BM AFTER BREAKFAST WHICH WAS LOOSE. PT IS PLEASANT AND COOPERATIVE. PT IS RESTING IN BED WITH BOTH EYES OPEN AT THIS TIME WITH CALL LIGHT AND tv REMOVE WITH IN REACH.
[2018-12-18 11:55] VITALS: BP 143/72
[2018-12-18 15:41] VITALS: BP 140/66
[2018-12-18 18:08] LABS: CMV IgM Abs <30.0 AU/mL (0.0-29.9)
--- NOTE | 2018-12-18 18:37 | NUR ---
PT VSS, C/O GAS PAIN DOCUMENTED, NOTIFIED dR AND ORDERS RECEIVED. PT STATED MED GIVEN WAS EFFECTIVE. PT CONT TO HAVE LOOSE STOOLS THROUGHOUT THIS SHIFT. PT REMAINS SR ON THE DECORATING CONSULTANT. PT HAD MINIMAL PO INTAKE PT STATED IT CAUSED HER TO HAVE GAS PAIN. HOURLY ROUNDS COMPLETED AND DOCUMENTED.
[2018-12-18 20:00] VITALS: BP 120/76
[2018-12-19] VITALS: BP 140/53
[2018-12-19 04:00] VITALS: BP 138/69
--- NOTE | 2018-12-19 07:05 | NUR ---
PATIENT NOT PROGRESSING TOWARDS GOALS: CONTINUES TO HAVE C/O ABDOMINAL CRAMPING AND DIARRHEA DESPITE MEDICATION AND RELAXATION TECHNIQUES. PATIENT FRUSTRATED THAT "DOCTORS HAVE NOT TOLD HER WHAT IS CAUSING THIS." REASSURED THAT PHYSICIAN WILL BE ROUNDING TODAY. CALL LIGHT WITHIN REACH
--- NOTE | 2018-12-19 08:00 | NUR ---
PT ASSESSED, VSS AND CHARTED, PT CONT TO HAVE LOOSE STOOLS. STATES EATING AND DRINKING GIVES HER STOMACH CRAMPS. CRAMPS ARE RELIEVED BY HAVING A BM. PT DID NOT EAT BREAKFAST TO AVOID CRAMPS. PT IS OTHER HUSSEIN COMPLIANT AND PLEASANT. PT IS RESTING IN BED WITH CALL LIGHT IN REACH, FRESH WATER AVAILABLE AND IN REACH.
[2018-12-19 11:31] VITALS: BP 134/71
[2018-12-19 15:52] VITALS: BP 148/73
[2018-12-19 19:45] VITALS: BP 150/73
[2018-12-20] VITALS: BP 132/60
[2018-12-20 04:00] VITALS: BP 126/65
--- NOTE | 2018-12-20 05:02 | NUR ---
PT HAS SLEPT WELL AFTER RECEIVING DICYCLOMINE PRN AND SCHEDULED MEDS FOR ABD CRAMPING AT HS. UP TO BSC TO VOID AND LOOSE BM OVERNIGHT. TELE SR, SB OVERNIGHT. AM LAB DRAWN. RFA SL. ROOM AIR. ABLE TO USE CALL LITE AND MAKE NEEDS KNOWN. L LIMB ALERT.
[2018-12-20 12:29] VITALS: BP 152/63
[2018-12-20 16:48] VITALS: BP 150/65
--- NOTE | 2018-12-20 17:34 | NUR ---
ASSUMED PT CARE AT 0700, PT A&O X4, VSS, RA, FUSELAGE FRAMER TRACING SINUS RHYTHM WITH 1ST DEGREE AV BLOCK, FULL ASSESSMENT CHARTED. PT CONT TO C/O GAS PAIN IN ABDOMEN, PRN SIMETHICONE ON BOARD, DENIES ANY NAUSEA/VOMITING AND MINIMAL DIARRHEA, EDUCATED ON PRN MEDICATIONS AND ALERTING NURSE IF EITHER OCCURS. HOURLY ROUNDING COMPLETED.
[2018-12-20 19:45] VITALS: BP 143/74
[2018-12-20 23:57] VITALS: BP 130/63
[2018-12-21 04:00] VITALS: BP 101/67
--- NOTE | 2018-12-21 05:04 | NUR ---
PT CO ABD CRAMPING SEVERAL TIMES OVERNIGHT, PO MEDS GIVEN AVAILABLE-PT STATES MEDS HELP FOR A LITTLE WHILE BUT DONT LAST LONG. PO PHENERGAN GIVEN ONCE FOR SUDDEN ONSET NAUSEA-BELCHING BUT NO EMESIS. UP TO BSC TO VOID AND 3 SMALL LOOSE BROWN BMS OVERNIGHT. AM LAB DRAWN. SLIV. L LIMB ALERT. CALL LITE IN EASY REACH, ABLE TO USE CALL LITE AND MAKE NEEDS KNOWN.
--- NOTE | 2018-12-21 08:00 | NUR ---
AFTER 0700 REPORT THIS NURSE ASSUME CARES FOR THIS PT. PT VSS, CARD SB, HR 57. PT WAS ASSESSED AND DOCUMENTED IN CHART. PT RATES HER PAIN AT A 3 ON A SCALE 0 FOR NO PAIN AND 10 FOR EXTREME PAIN.
[2018-12-21 09:50] VITALS: BP 142/73
[2018-12-21 10:55] VITALS: BP 141/64
[2018-12-21 11:30] VITALS: BP 140/72
--- NOTE | 2018-12-21 15:07 | PATH ---
[address] [address] PATHOLOGY RPT PROCEDURE Name: CATINA HARPER Room: [facility] IN M.R.#: [id number] Admission: 12/15/18 Date of : 41 Discharge: Report #: [id number] Path Case #: [id number] LCA Accession Number: [id number] . 01 Material submitted: . PART A: duodenum - DUODENAL BIOPSY PART B: stomach - GASTRIC BIOPSY FOR GASTRITIS PART C: colon - COLON BIOPSY; RULE OUT HSV, CMV . 01 Clinical history: . None provided . 02 Diagnosis: A. Duodenal biopsy: - Benign small intestinal mucosa with mild intraepithelial lymphocytosis, negative for cryptitis, granulomas, diagnostic viral inclusions and dysplasia. See comment. . B. Gastric biopsy: - Mild chronic gastritis suggesting reactive gastropathy (chemical gastritis), negative for Helicobacter pylori organisms, cryptitis, granulomas, diagnostic viral inclusions, and dysplasia. . C. Colon biopsy: - Nonspecific active colitis with ulceration, negative for granulomas, diagnostic viral inclusions and dysplasia. See comment. (KAI:shai; 12/21/2018) DEJAN/12/21/2018 . 02 Comment: Mild intraepithelial lymphocytosis is seen in the duodenal biopsy. This is a nonspecific finding that can be seen with soy and milk protein allergies, various viral infections and with drugs, but could indicate early celiac disease as well. . The colon biopsies (C) show benign colonic mucosa with active inflammation and ulceration that appears fairly discreet and the less inflamed mucosa does not show significant basal lymphocytosis or crypt distortion to elevate a concern for inflammatory bowel disease. No diagnostic viral inclusions are seen and properly controlled HSV-1, HSV-2 and CMV immunohistochemical stains, performed on C1, are negative although viral etiologies cannot be entirely excluded. Preliminary findings discussed with Dr. Chandler on a.m. of 12/21/2018. (KAI:shai; 12/21/2018) . Special stain on A is H. pylori. Special stain on C is HSV-1, HSV-2, and [place] [address] PATHOLOGY RPT PROCEDURE Name: CATINA HARPER Room: [address] IN .R.#: [id number] Admission: 12/15/18 Date of : 41 Discharge: Report #: [id number] Path Case #: [id number] . *This test was developed and its performance characteristics determined by [facility]. It has not been cleared or approved by the U.S. Food and Drug Administration. The FDA has determined that such clearance or approval is not necessary. This test is used for clinical purposes. It should not be regarded as investigational or for research. This laboratory is certified under the Clinical Laboratory Improvement Amendments of 1988 (CLIA) as qualified to perform high complexity clinical laboratory testing. . 02 Electronically signed: . Paul Malone MD, Pathologist NPI- [id number] . 01 Gross description: . A. Received in formalin labeled "Catina Harper, duodenal biopsy," are 3 segments of walter soft tissue measuring 0.9 x 0.5 x 0.1 cm in aggregate dimensions and ranging from 0.1 to 0.4 cm in maximum dimension. The specimen is submitted entirely in cassette A1. . B. Received in formalin labeled "Peggy Catina, gastric BX for gastritis," is a single segment of walter soft tissue measuring 0.5 cm in maximum dimension. The specimen is entirely submitted in cassette B1. . C. Received in formalin labeled "Peggy Catina, colon biopsy, rule out HSV, CVM," and additionally labeled on the requisition as "CMV," are 3 segments of walter soft tissue measuring 1.1 x 0.6 x 0.3 cm in aggregate dimensions and ranging from 0.2 to 0.6 cm in maximum dimension. The specimen is submitted entirely in cassette C1. (TSD; 12/17/2018) TOB/TOB . 02 Pathologist provided ICD-10: D72.820, K29.50, K52.9, K63.3 . 02 CPT . 815676, 243843, 302326, S20697, C76291 Specimen Comment: A courtesy copy of this report has been sent to Specimen Comment: [phone], , . Specimen Comment: Report sent to ,DR BEST / DR CHAVES Performed at: [address], [place], [place] [id number] MD León Lindsey MD Phone: [phone] Performed at: [address] [address] [address], [place], [place] [id number] MD Paul Malone MD Phone: [phone]
[2018-12-21 16:00] VITALS: BP 145/73
--- NOTE | 2018-12-21 16:43 | NUR ---
PT TRANSFERRED TO [facility] DUE TO MED SURG STATUS, REPORT GIVEN TO ROSITA MONTES DE OCA. ALL PATIENTS BELONGINGS WERE SENT WITH PATIENT, MILIEU COUNSELOR REMOVED, HOURLY ROUNDING COMPLETED.
--- NOTE | 2018-12-21 16:58 | NUR ---
PATIENT TRANSFERRED FROM [facility] TO ROOM 116. REPORT RECEIVED FROM ROSITA IRIZARRY. PATIENT ALERT AND ORIENTED. PATIENT UP TO BATHROOM WITH ASSISTANCE. BED ALARM IN PLACE. IV SL. HEART HEALTHY DIET. AGREE WITH AM ASSESSMENT. CALL LIGHT WITHIN REACH, WILL CONTINUE TO MONITOR.
--- NOTE | 2018-12-21 19:55 | NUR ---
AT APROXIMATELY 0940 PT WAS TAKEN TO THE SHOWER ROOM BY CASE ASSEMBLER. CASE ASSEMBLER WAS TOLD DURING REPORT THE PT WAS UP AT FABIO. PT WAS EDUCATED TO PULL CALL LIGHT STRING WHEN DONE. CASE ASSEMBLER WENT BACK INTO THE SHOWER ROOM TO CHECK ON PT AND FOUND HER SITTING IN THE SHOWER CHAIR. PT SAID SHE LOST HER BALANCE IN THE SHOWER AND CAUGHT HERSELF SHE WAS FALLING AND LOWERED HERSELF TO THE SHOWER FLOOR. SHE THEN GOT UP ON HER OWN AND SAT DOWN ON THE SHOWER CHAIR. S02:98% RA, PT'S VS WERE TAKEN AT 0950 B/P 142/73, HR: 59, AT 10:55 VS WERE B/P 141/64, HR: 66, S02 94% RA. CASE ASSEMBLER WAS EDUCATED THAT PT WAS UP AT FABIO TO BEDSIDE COMMODE ONLY WAS INDEED A FALL RISK. PT DENIES ANY INJURIES, FAMILY AND PHYSICIAN NOTIFIED. NEUROS AND VS COMPLETED DIRECTED.
--- NOTE | 2018-12-22 05:37 | NUR ---
PT ALERT AND ORIENTED, FORGETFUL AT TIMES. BED ALARMS ON FOR SAFETY. VITALS STABLE RA. MEDS GIVEN ORDERED. PRN TYLENOL GIVEN FOR ABD PAIN. PT STATED SHE STILL HAS LOOSE STOOLS. PT RESTING/SLEEPING QUIETLY ON HOURLY ROUNDINGS. WILL CONTINUE TO MONITOR.
[2018-12-22 08:00] VITALS: BP 134/63
--- NOTE | 2018-12-22 14:26 | CON ---
[address] [address] CONSULTATION Name: CATINA HARPER Room: [address] IN .R.#: [id number] Admission: 12/15/18 Attend Phys: Leena Carroll MD Discharge: Date of : 41 Report #: [id number] THIS REPORT FOR: //name// CC: Leena Anne DATE OF SERVICE: 12/21/2018 INFECTIOUS DISEASE CONSULTATION ATTENDING PHYSICIAN: Hector Chandler MD REASON FOR EVALUATION: Colitis, possibly viral. HISTORY OF PRESENT ILLNESS: The patient is a 73-year-old woman with extensive medical history presented through the Emergency Room with complaints of a syncopal episode. It is notable that she has been having significant mostly continuous abdominal related pain and also significant weight loss over the course of the last 6 months. She was hospitalized 04/2018 to 05/2018 without a diagnosis. She did have additional studies including upper and lower endoscopy. The findings confirmed multiple colonic ulcers, described as a nonspecific active colitis with ulceration. There were no granulomas, viral inclusions or dysplasia. She denies any particular exposure history. Stool culture for enteric pathogen was otherwise unremarkable. She is not encephalopathic. Denies any significant pulmonary-related complaints except when she is having significant pain, which was described as spasmodic. ALLERGIES: OXYCODONE. CURRENT MEDICATIONS: Include colestipol, ondansetron, loperamide, levothyroxine, cyanocobalamin, citalopram, atorvastatin, promethazine, melatonin, acetaminophen, lisinopril. PAST MEDICAL HISTORY: Includes history of Graves' disease, hypothyroidism, breast cancer more than 2 decades ago, back pain with previous surgeries, degenerative disk disease, previous hysterectomy, carpal tunnel, rotator cuff repair on the left, hypertension, degenerative joint disease, gastroenteritis, B12 deficiency, dementia, diverticulosis, hemorrhoids. SOCIAL HISTORY: Nonsmoker, no ethanol. FAMILY HISTORY: Noncontributory. REVIEW OF SYSTEMS: As above, otherwise unremarkable. Primarily noted for a weight loss, [place] [address] CONSULTATION Name: CATINA HARPER Room: [address] IN [facility].#: [id number] Admission: 12/15/18 Attend Phys: Leena Carroll MD Discharge: Date of : 41 Report #: [id number] PHYSICAL EXAMINATION: GENERAL: She appears chronically ill, undernourished. She is pleasant, cooperative, in mild to moderate distress. VITAL SIGNS: Temperature 98.4, pulse 57, respirations 18, blood pressure 140/72. SKIN: Warm, dry, no rashes. HEENT: Normocephalic. Extraocular muscles intact. NECK: Supple. LUNGS: Diminished, otherwise clear breath sounds. HEART: Regular. Borderline bradycardic. I do not appreciate a murmur. ABDOMEN: Mildly tender lower quadrants in particular. There are no overt peritoneal signs. EXTREMITIES: Distal lower extremities were otherwise unremarkable. There are no new-onset eruptions. No synovitis or arthritis. GENITOURINARY: Deferred. RECTAL: Deferred. LABORATORY DATA: Reviewed path report as described above and nonspecific active colitis with ulceration, mild chronic gastritis, negative for Helicobacter. Duodenal biopsy was nonspecific. Blood cultures are sterile thus far. Stool for enteric pathogens were negative. CMV IgG antibody was positive, although the IgM was negative. Pending HSV. ASSESSMENT: Colitis with ulceration. In retrospect, this has likely been going on at least one degree or another for last several months that has been associated with weight loss, certainly raises question of systemic illness, cannot entirely exclude infectious etiology, although exposure history is not particularly . We can check a CMV PCR. Consider therapeutic trial of acyclovir given the progressive nature so we have a conclusive diagnosis. Otherwise, we would be concerned about noninfectious causes as well including immune related or perhaps occult malignancy or less likely drug related. We will continue to consider other potential infectious causes. <ELECTRONICALLY SIGNED> By: Von Laboy MD 12/22/18 1426 1528 0225Von Laboy MD /nt
[2018-12-22 16:00] VITALS: BP 133/64
--- NOTE | 2018-12-22 17:07 | NUR ---
PT.TRANSFERRED FROM [facility] YESTERDAY AFTERNOON. STILL COMPLAINS OF SOME ABDOMINAL PAIN AND HAVING LOOSE STOOLS. SAW TODAY FOR POSSIBLE VIRAL COLITIS. STILL WOULD LIKE TO GO HOME AT DISCHARGE, WITH FAMILY. SHE SAID SHE IS WEAK. ENCOURAGED TO INCREASE ACTIVITY WITH NURSING ASSIST,IE WALK IN HALLS, UP IN CHAIR FOR MEALS,ETC.
--- NOTE | 2018-12-22 17:26 | NUR ---
PT UP IN CHAIR FOR MEALS. PT DENIES PAIN OR SOA. TOLERATING PO WELL. CALLS APPROPRIATELY FOR ASSIST
[2018-12-22 20:30] VITALS: BP 132/74
--- NOTE | 2018-12-23 05:07 | NUR ---
ASSUMED PT'S CARE AT 0400 THIS AM. ALERT AND ORIENTED. FORGETFUL. VSS. BED ALARM ON. CALL LIGHT WITHIN REACH. PT CALLS OUR APPROPRIATELY. HOURLY ROUNDINGS MADE. WILL CONTINUE TO MONITOR.
[2018-12-23 07:13] LABS: HSV 1 DNA Negative (Negative); HSV 2 DNA Negative (Negative)
[2018-12-23 08:00] VITALS: BP 126/79
[2018-12-23] MEDS ORDERED: LEVOTHYROXINE125 MCG PO (08:16)
[2018-12-23] MEDS ORDERED: PHENERGAN 25 MG25 M1 PO (08:16)
[2018-12-23] MEDS ORDERED: LOPERAMIDE 2 MG2 M1 PO (08:16)
[2018-12-23] MEDS ORDERED: VALCYTE450 MG PO (08:16)
[2018-12-23] MEDS ORDERED: COLESTIPOL HCL1 G1 PO (08:16)
[2018-12-23] MEDS ORDERED: BENTYL 20 MG TA20 M1 PO (08:16)
[2018-12-23] MEDS ORDERED: B12INJ SUBQ (08:16)
[2018-12-23 15:00] VITALS: BP 126/79
--- NOTE | 2018-12-23 15:08 | NUR ---
SUPERVISOR LAMP SHADES SPOKE TO THE PATIENT TO DISCUSS DISCHARGE PLANNING NEEDS, AND HH AT D/C. PATIENT ACCEPTS HH AND INFORMS THAT SHE HAS NO PREFERENCE ABOUT CHOICE OF HH. D/C COIN WRAPPING MACHINE OPERATOR ASSISTED THE PATIENT IN COMPLETING CHOICE OF VENDOR FORM AND PLACED COPY ON THE CHART. D/C COIN WRAPPING MACHINE OPERATOR CONTACTED [facility] TO INFORM OF THE HH REFERRAL AND FAXED THE PATIENT'S FACESHEET, H&P, AND D/C SUMMARY TO [facility]. [facility] WILL CONTACT THE PATIENT TO ARRANGE A TIME TO VISIT. CM WILL REMAIN AVAILABLE TO ASSIST AND FOLLOW NEEDED. [facility] PHONE: [phone] FAX: [phone]
[2018-12-23 15:49] VITALS: BP 126/79
--- NOTE | 2018-12-23 15:51 | NUR ---
SPA MANAGER SPOKE TO THE PATIENT TO DISCUSS DISCHARGE PLANNING AND HH AT D/C. PATIENT HAD NO PREFERENCE ABOUT CHOICE OF HH AND IS IN AGREEMENT WITH HH WITH [facility]. D/C O AND M SUPERVISOR INFORMED [facility] OF THE HH REFERRAL AND FAXED THE PATIENT'S FACESHEET, H&P, AND D/C ORDERS. PLAN IS FOR THE PATIENT TO D/C TODAY, AND SHE REQUEST THAT NURSING CONTACT HER DTR WHEN PAPERWORK IS COMPLETED SO THAT SHE CAN PROVIDE HER TRANSPORT HOME. D/C O AND M SUPERVISOR INFORMED THE PATIENT'S RN OF THIS INFO. CM WILL REMAIN AVAILABLE TO ASSIST AND FOLLOW NEEDED.
[2018-12-23 17:00] VITALS: BP 126/79
[2018-12-23 18:45] VITALS: BP 126/79
--- NOTE | 2018-12-23 18:46 | NUR ---
I ASSUMED CARE OF THE PATIENT AT 0700. SHE IS SLEEPY, ALERT AND ORIENTED X4 AND IS UP WITH STAND BY ASSIST. BED IS IN THE LOW LOCKED POSITION AND CALL LIGHT IS IN REACH. PATIENT NEEDS ARE MET DURING HOURLY ROUNDING AND PAIN IS DENIED. SHE HAD LESS BOWEL MOVEMENTS TODAY AND SAYS SHE FEELS BETTER. SHE IS DISCHARGED TO HOME AFTER BEING SEEN BY GI/ID AND SCRIPTS ARE GIVEN. WILL CONTINUE TO MONITOR. IV D/C'D AND FAMILY CAME TO GET HER AND TAKE HER HOME.
== END 2018-12-23 18:30 | disposition home health service (06) | DRG 393 ==
LOC: M.ERS 09:43 → M.2W 11:04 → M.TBA-ER 11:04 → M.2W 12:40 → M.ORTHSURG 12-21 16:45
PROVIDERS: Emergency Medicine; Internal Medicine; Internal Medicine Gastroenterology; ADMIT Internal Medicine
DX: K63.3 Ulcer of intestine (principal); N17.0 Acute kidney failure with tubular necrosis; M80.08XA Age-related osteoporosis with current pathological fracture, vertebra(e), initial encounter for fracture; I16.1 Hypertensive emergency; E86.9 Volume depletion, unspecified; K52.9 Noninfective gastroenteritis and colitis, unspecified; I12.9 Hypertensive chronic kidney disease with stage 1 through stage 4 chronic kidney disease, or unspecified chronic kidney disease; N18.3 Chronic kidney disease, stage 3 (moderate); E86.0 Dehydration; K29.60 Other gastritis without bleeding; F03.90 Unspecified dementia, unspecified severity, without behavioral disturbance, psychotic disturbance, mood disturbance, and anxiety; E03.9 Hypothyroidism, unspecified; K57.90 Diverticulosis of intestine, part unspecified, without perforation or abscess without bleeding; E78.5 Hyperlipidemia, unspecified; R63.4 Abnormal weight loss; M19.90 Unspecified osteoarthritis, unspecified site; G89.29 Other chronic pain; R10.9 Unspecified abdominal pain; F32.9 Major depressive disorder, single episode, unspecified; E53.8 Deficiency of other specified B group vitamins; K29.40 Chronic atrophic gastritis without bleeding; Z85.3 Personal history of malignant neoplasm of breast; Z90.710 Acquired absence of both cervix and uterus; Z88.6 Allergy status to analgesic agent; Z90.49 Acquired absence of other specified parts of digestive tract; Z80.3 Family history of malignant neoplasm of breast; Z68.26 Body mass index [BMI] 26.0-26.9, adult

== ENCOUNTER 2018-12-29 08:12 | Inpatient (IN) | payer OTHER ==
[~2018-12-29] VITALS: Ht 167.6 cm; Wt 54.0 kg
--- NOTE | ~2018-12-29 | PROC ---
[address] [address] PROCEDURE REPORT Name: ACTINA HARPER Room: [address] ADM IN M.R.#: [id number] Admission: 12/29/18 Attend Phys: Leena Carroll MD Discharge: Date of : 41 Report #: [id number] THIS REPORT FOR: //name// For GI report, please see the Provation report in Perceptive 7 content. By: 0655Medical Records Staff DEEPTHI /ROGERIO
[~2018-12-29 08:12] MED LIST changes: +B12INJ SUBQ; +BENTYL 20 MG TA20 M1 PO; +BIOTIN1 M1 PO; +COLESTIPOL HCL1 G1 PO; +KLOR-CON 1010 MEQ PO; +LEVOTHYROXINE125 MCG PO; +LOPERAMIDE 2 MG2 M1 PO; +PHENERGAN 25 MG25 M1 PO; +VALCYTE450 MG PO; +ZOCOR20 MG PO
[2018-12-29 08:14] VITALS: BP 150/74
[2018-12-29 08:38] LABS: HEMATOCRIT 31.2 % (37.0-47.0); HEMOGLOBIN 10.8 gm/dL (12.0-15.0); MCHC 34.7 g/dL (28.0-37.0); MCV 89.3 fL (80.0-100.0); NUCLEATED RBCS 0 /100WBC; PLATELET COUNT* 351 thou/uL (150-400); RBC 3.49 mil/uL (4.20-5.00); RDW-CV 12.4 % (10.5-14.5); WBC 10.4 thou/uL (4.0-11.0)
[2018-12-29 08:47] LABS: ANION GAP 12 mmol/L (7-16); BUN 13 mg/dL (7-18); CHLORIDE 93 mmol/L (98-107); CO2 25 mmol/L (21-32); GLUCOSE 130 mg/dL (70-99); SODIUM 130 mmol/L (136-145)
[2018-12-29 08:48] LABS: POTASSIUM 2.9 mmol/L (3.5-5.1)
[2018-12-29 08:59] LABS: ABSOLUTE LYMPHOCYTES 0.9 thou/uL (0.8-5.3); ABSOLUTE MONOCYTES 0.6 thou/uL (0.0-1.2); ABSOLUTE NEUTROPHILS 8.8 thou/uL (1.6-8.1); ALBUMIN 2.4 g/dL (3.4-5.0); ALKALINE PHOSPHATASE 86 U/L (46-116); LIPASE 104 U/L (73-393); SGOT 16 U/L (15-37); SGPT 14 U/L (30-65); TOTAL PROTEIN 6.7 g/dL (6.4-8.2); TROPONIN-I LEVEL <0.06 ng/mL (<0.06)
[2018-12-29 09:00] LABS: ANISOCYTOSIS 1+; APTT 28.5 Seconds (25.0-31.3); INR 1.4; PLATELET ESTIMATE ADEQUATE; POIKILOCYTOSIS 1+; PROTIME 13.8 Seconds (9.20-11.50)
[2018-12-29 09:02] LABS: URINE BLOOD TRACE (Negative); URINE CLARITY CLEAR; URINE COLOR YELLOW; URINE GLUCOSE-RANDOM NEGATIVE (Negative); URINE KETONES 1+ (Negative); URINE LEUKOCYTES-REFLEX NEGATIVE (Negative); URINE NITRITE-REFLEX NEGATIVE (Negative); URINE PROTEIN 1+ (Negative); URINE SPECIFIC GRAVITY 1.025 (1.005-1.030); URINE UROBILINOGEN 0.2 E.U./dl (0.2-1.0)
[2018-12-29 09:04] LABS: ICTOTEST (BILI CONFIRMATORY) Negative (Negative); URINE BILIRUBIN 1+ (Negative)
[2018-12-29 09:53] LABS: % SATURATION 10 % (20-39); IRON 17 ug/dL (50-175)
[2018-12-29 10:21] VITALS: BP 123/62
[2018-12-29 10:44] VITALS: BP 128/70
--- NOTE | 2018-12-29 12:45 | NUR ---
DPOA NOTARIZED, COPY TO CHART AND PT'S DTR
--- NOTE | 2018-12-29 12:47 | NUR ---
cm completed initial assessment. pt a&ox3. pt lives at home w/her daughter, olayinka and her family. pt has walker. current w/[facility]. denies hx w/snf. pt completed dpoa paperwork. pt states she is independent w/adls. states she is somewhat active, likes to walk to library to check out books. mitzy, from [facility] notified of pt admisison into hospital. states [place] [facility] is willing to resume care @ time of d/c cm needs to send resumption of care order to [facility] @ time of d/c. cm to cont to follow and assist as needed.
[2018-12-29 16:09] VITALS: BP 126/63
--- NOTE | 2018-12-29 17:28 | NUR ---
PT A&Ox4. VITALS STABLE. HAVING WATERY STOOL WITH BLOOD IN IT. MILD BOWEL PREP STARTING TONIGHT. SCHEDULED FOR COLONOSCOPY TOMORROW AFTERNOON. UP WITH STAND BY ASSIST. IV IN R AC AND R FA PATENT. TOLERATING CLEARS. NO APPITITE. FALL PRECAUTIONS IN PLACE. CALL LIGHT WITHIN REACH. WILL CONTINUE TO MONTIOR.
[2018-12-29 20:00] VITALS: BP 110/65
[2018-12-30 03:59] VITALS: BP 141/69
[2018-12-30 04:21] VITALS: BP 141/69
[2018-12-30 04:54] LABS: HEMATOCRIT 26.9 % (37.0-47.0); MCH 30.6 pg (26.0-34.0); MCHC 33.4 g/dL (28.0-37.0); MCV 91.9 fL (80.0-100.0); MPV 6.4 fl. (7.2-11.1); RBC 2.93 mil/uL (4.20-5.00); RDW-CV 12.6 % (10.5-14.5); WBC 7.5 thou/uL (4.0-11.0)
[2018-12-30 05:05] LABS: CALCIUM 7.7 mg/dL (8.5-10.1); CREATININE 0.8 mg/dL (0.6-1.3)
[2018-12-30 05:09] LABS: MAGNESIUM 1.3 mg/dL (1.8-2.4); POTASSIUM 4.2 mmol/L (3.5-5.1); TOTAL BILIRUBIN 0.5 mg/dL (<0.1-1.0)
[2018-12-30 05:11] LABS: PREALBUMIN 7.3 mg/dL (18.0-35.7)
[2018-12-30 08:41] VITALS: BP 137/64
--- NOTE | 2018-12-30 09:18 | EKG ---
[place] [address] ELECTROCARDIOGRAM REPORT Name: CATINA HARPER Room: [address] ADM IN .R.#: [id number] Admission: 12/29/18 Attend Phys: Leena Carroll MD Discharge: Date of : 41 Report #: [id number] THIS REPORT FOR: //name// [facility] ED Test Date: 2018-12-29 Test Time: 08:28:42 Pat Name: CATINA HARPER Department: Room: [facility] Gender: F Otr Truck Driver: TACOS : 1945 Requested By: Amaris Gutierrez Order Number: [id number] MD: Ralph Cast Measurements Intervals Meta Rate: 68 P: 69 CA: 151 QRS: 57 QRSD: 108 T: 75 QT: 546 QTc: 581 Interpretive Statements Sinus rhythm Prolonged QT interval Compared to ECG 12/16/2018 10:31:25 Prolonged QT interval now present Electronically Signed On 12-30-2018 9:18:02 CDT by Ralph Cast [email or web address] <ELECTRONICALLY SIGNED> By: Ralph Cast MD, [facility] 12/30/18 0918 7 7 Ralph Cast MD, [facility] /EPI
--- NOTE | 2018-12-30 16:06 | NUR ---
PT A&Ox4. VITALS STABLE. ARRIVED BACK FROM COLONOSCOPY ABOUT 1330. WALKED HALLS WITH THERAPY. LIQUID STOOLS. UP STAND BY ASSIST. IV PATENT. POSSIBLE PICC PLACEMENT TOMORROW. MINIMAL PAIN, DENIED PAIN MEDS. MINIMAL NAUSEA, DENIED NAUSEA MEDS. TOLERATING CLEAR LIQUIDS, ADVANCED TO SOFT/FIBER RESTRICTED DIET. FALL PRECAUTIONS IN PLACE. CALL LIGHT WITHIN REACH. WILL CONTINUE TO MONITOR.
[2018-12-30 16:30] VITALS: BP 128/77
--- NOTE | 2018-12-30 16:30 | NUR ---
SPOKE BRIEFLY TO PT.ABOUT DISCHARGE PLAN. DISCUSSED POSSIBLE SKILLED STAY FOR SHORT TIME TO GET STRONGER BEFORE GOING HOME. SHE SAID IT WOULD GIVE HER DAUGHTER A BREAK. SHE SAID I COULD CALL HER DAUGHTER FLACO TO DISCUSS. WILL SEE HOW PT.DOES WITH THERAPY BEFORE CALLING DAUGHTER.
--- NOTE | 2018-12-30 18:18 | CON ---
[address] [address] CONSULTATION Name: MEREDITHCATINA Mychal Room: [address] IN .R.#: [id number] Admission: 12/29/18 Attend Phys: Leena Carroll MD Discharge: Date of : 41 Report #: [id number] THIS REPORT FOR: //name// CC: Leena Anne DNP DICTATED BY: Coby Mortensen [facility] DATE OF SERVICE: 12/29/2018 Please note at the time of this dictation, the patient was seen and physically examined by myself. REASON FOR CONSULTATION: Abdominal pain and hematochezia. HISTORY OF PRESENT ILLNESS: This is a pleasant 73-year-old female who is well known to our practice, who was recently discharged from the hospital on 12/23 and returns today with having period of lightheadedness and having a bloody episode of stool earlier this morning. Apparently, she has had 2 episodes of bright red bloody stool. She continues to have loose bowels 2-3 times a day that worsen when she does eat; however, ever since she has gone home, her daughter states that she really has not been eating much of anything and this is a gradual progression over the past year, that she has had a significant weight loss without having any appetite. She did feel a little nauseous when she came in, but she has had no vomiting. The patient did undergo an EGD and colonoscopy on 12/17, on her last admission. EGD was normal. Duodenal biopsy showed some mild intraepithelial lymphocytosis and colon showed hemorrhoids with some active inflammation, ulcerations throughout the entire colon. Daughter also states that she has been sleeping every day ever since she got out of the hospital and is very less interactive with family. She continues to not have an appetite and she may take a couple of bites of something and states that she is full. ALLERGIES: OXYCODONE. MEDICATIONS: From home include Valcyte, Phenergan, Bentyl, Imodium, levothyroxine, colestipol, B12, lisinopril, simvastatin and citalopram. PAST MEDICAL HISTORY: Graves, history of breast cancer, hypertension, degenerative joint disease, B12 deficiency, chronic kidney disease, dementia, history of diverticulosis and hemorrhoids. PAST SURGICAL HISTORY: Hysterectomy, carpal tunnel, back surgery and recent hernia surgery. FAMILY HISTORY: [place] [address] CONSULTATION Name: CATINA HARPER Room: [address] IN [facility]#: [id number] Admission: 12/29/18 Attend Phys: Leena Carroll MD Discharge: Date of : 41 Report #: [id number] SOCIAL HISTORY: She lives with her daughter. Denies any alcohol, tobacco or illegal drug use. REVIEW OF SYSTEMS: Twelve-point review of systems is essentially negative except what is mentioned in the HPI. PHYSICAL EXAMINATION: VITAL SIGNS: Temperature 36.8, pulse 72, respirations 14 and blood pressure 150/74. HEART: Regular rate and rhythm. LUNGS: Clear. ABDOMEN: Soft, positive bowel sounds in all 4 quadrants with some right upper quadrant tenderness to palpation. LABORATORY DATA: Hemoglobin is 10.8, on discharge she was 11.2, white count is 10.4 and platelets 351. Potassium on admission was 2.9, being replaced. GFR is 54. PT 13.8 and INR 1.4. IMAGING: CT not in the chart yet, but was told that worsening of her colitis from last admission. IMPRESSION: 1. Hematochezia. 2. Abdominal pain. 3. Anorexia. 4. Hypokalemia. 5. Anemia. PLAN: 1. Continue clear liquids. 2. We will do a colonoscopy and repeat biopsies and see if that TI can be cannulated with the pediatric scope. 3. We will start Solu-Medrol 40 mg q. 12 hours, first dose now. 4. These recommendations have been discussed with Dr. Singh and further will be obtained after her colonoscopy tomorrow. Thank you for allowing us to participate in this patient's care. Please do not hesitate to call with any questions in regard to this consult. <ELECTRONICALLY SIGNED> By: Celio Singh DO 12/30/18 1818 1248 [id number] Singh DO /nt
[2018-12-31] VITALS: BP 174/75
--- NOTE | 2018-12-31 05:42 | NUR ---
PATIENT SLEPT MOST OF THE NIGHT. IV FLUIDS CONTINUE TO INFUSE ORDERED. PATIENT HAD NO COMPLAINTS OF PAIN OR NAUSEA. PATIENT FORGETFUL AT TIMES FORGETS TO CALL FOR HELP TO THE BATHROOM. BED ALARM REMAINS ON FOR PATIENT SAFETY. WILL CONTINUE TO MONITOR.
[2018-12-31 05:49] LABS: HEMATOCRIT 24.9 % (37.0-47.0); HEMOGLOBIN 8.4 gm/dL (12.0-15.0); MCH 31.2 pg (26.0-34.0); MCHC 33.9 g/dL (28.0-37.0); MPV 6.7 fl. (7.2-11.1); RBC 2.71 mil/uL (4.20-5.00); RDW-CV 12.7 % (10.5-14.5); WBC 7.2 thou/uL (4.0-11.0)
[2018-12-31 06:07] LABS: ALBUMIN 2.1 g/dL (3.4-5.0); CALCIUM 7.6 mg/dL (8.5-10.1); CREATININE 0.8 mg/dL (0.6-1.3); MAGNESIUM 1.7 mg/dL (1.8-2.4); POTASSIUM 3.6 mmol/L (3.5-5.1); TOTAL BILIRUBIN 0.3 mg/dL (<0.1-1.0); TOTAL PROTEIN 5.2 g/dL (6.4-8.2)
[2018-12-31 08:00] VITALS: BP 134/63
--- NOTE | 2018-12-31 11:31 | NUR ---
Nutrition: Pt assessed for nsg risk 2 points. Admitted with GIB, vomiting. Possible Crohns. Appetite is improving. +BM yday. Alb 2.1, prealb 7.8. Severely depleted protein stores. Fiber restricted diet ordered. Wt is 119#. Usual fluctuation is 120-130# this year. Prior to that, it was ~140#. Mild wt loss. RD will order Beneprotein for added protein intake. Pt needs to gain strength before returning home. Other oral supplements available if meal intake <50%. Mild risk.
--- NOTE | 2018-12-31 13:10 | NUR ---
RIGHT BASILIC VESSEL ACCESSED FOR SINGLE LUMEN PICC. LINE PRE-TRIMMED TO 41 CM AND ADVANCED TO THE ZERO JOSE WITH NO RESISTANCE MET. UPPER ARM CIRCUMFERENCE ABOVE INSERTION SITE= 10 1/2". SHERLOCK MAGNET AND 3CG CONFIRMATION OF TIP TERMINATION AT THE CAVOATRIAL JUNCTION APPRECIATED. STYLET REMOVED, LINE FLUSHED AND INSERTION SITE DRESSED. REPORT GIVEN TO ALLISON BECKER.
[2018-12-31 16:00] VITALS: BP 141/72
--- NOTE | 2018-12-31 18:18 | NUR ---
PATIENT RESTING IN BED. PATIENT WAS UP TO CHAIR X 1 AFTER WORKING WITH PHYSICAL THERAPY THIS AM. PATIENT REFUSED OCCUPATIONAL THERAPY. PATIENT HAS HAD INCREASED ABDOMINAL PAIN THIS EVENING. DR MARTINEZ NOTIFIED AND BLESSING GIVEN. PATIENT HAS POOR APPETITE. PATIENT DENIES ANY NEEDS AT THIS TIME. CALL LIGHT WITHIN REACH. WILL CONTINUE TO MONITOR.
[2018-12-31 20:00] VITALS: BP 146/76
--- NOTE | 2019-01-01 05:10 | NUR ---
PT ALERT AND ORIENTED, FORGETFUL AT TIMES. VITALS STABLE. MEDS GIVEN ORDERED. PRN BENTYL, TYLENOL GIVEN FOR ABD PAIN. NO NAUSEA/VOMITING THIS SHIFT. HOURLY ROUNDING COMPLETED. WILL CONTINUE TO MONITOR.
[2019-01-01 08:40] VITALS: BP 183/68
[2019-01-01 17:24] VITALS: BP 200/93
--- NOTE | 2019-01-01 19:00 | NUR ---
PATIENT PLEASANT AND COOPERATIVE THIS SHIFT. NOTED RESTING IN BED, EYES CLOSED, RESPS EVEN AND UNLABORED THRU MUCH OF DAY. PATIENT STATES JUST NOT FEELING WELL TODAY, STATES IT IS AN OFF DAY, A DAY TO REST. IV FLUIDS INFUSING IN PICC LINE W/O DIFF. SL TO RT FA WNL. RM DARKENED. HOB UP TO PATIENT COMFORT. PATIENT DENIES PAIN OR N/V THIS SHIFT. HRLY ROUNDS DONE, CALL LIGHT IN REACH. ~TJRN
[2019-01-01 19:30] VITALS: BP 150/87
[2019-01-02 00:20] VITALS: BP 163/77
--- NOTE | 2019-01-02 05:11 | NUR ---
PT RESTING/SLEEPING IN BED QUIETLY THROUGH THE NIGHT. MEDS GIVEN ORDERED. PT DENIED PAIN. NO NAUSEA OR VOMITING THIS SHIFT. PT HAD BM, LOOSE/BLOODY STOOL. VITALS STABLE RA. FLUIDS RUNNING ORDERED. HOURLY ROUNDING COMPLETED. WILL CONTINUE TO MONITOR.
[2019-01-02 09:15] VITALS: BP 156/70
[2019-01-02 16:26] VITALS: BP 155/77
--- NOTE | 2019-01-02 18:50 | NUR ---
PATIENT PLEASANT AND COOPERATIVE THIS SHIFT. UP TO SHOWER TODAY W/ SBA. AMB USING FWW. STEADY, SLOW GAIT NOTED. STATES HAVING 2 BMs THIS SHIFT. PATIENT STATES HAVING ABD PAIN THIS AFTERNOON, SEE MAR. STATES AT THIS TIME. IT IS CONTROLLED, RESTING IN BED W/ EYES CLOSED, AWAKENS EASILY TO VERBAL STIM. DENIES OTHER NURSING NEEDS. CALL LIGHT IN REACH. ROOM DARKENED. TV ON. HRLY ROUNDS DONE. ~TJRN
[2019-01-02 19:30] VITALS: BP 163/88
--- NOTE | 2019-01-03 04:58 | NUR ---
PT ALERT AND ORIENTED, BUT FORGETFUL. BED ALARM ON FOR SAFTY. MEDS GIVEN ORDERED. C/O ABD PAIN AFTER BM OF LOOSE/BLOODY STOOL. BETYL GIVEN AND PAIN PARTIALLY RESOLVED. RESTING/SLEEPING QUIETLY ON HOURLY ROUNDINGS. WILL CONTINUE TO MONITOR.
[2019-01-03 06:35] LABS: ABSOLUTE MONOCYTES 0.3 thou/uL (0.0-1.2); ABSOLUTE NEUTROPHILS 6.2 thou/uL (1.6-8.1); HEMATOCRIT 23.9 % (37.0-47.0); HEMOGLOBIN 8.1 gm/dL (12.0-15.0); MCH 30.8 pg (26.0-34.0); MCHC 33.9 g/dL (28.0-37.0); MCV 90.8 fL (80.0-100.0); MONOCYTES 3.5 %; MPV 6.2 fl. (7.2-11.1); NUCLEATED RBCS 0 /100WBC; PLATELET COUNT* 336 thou/uL (150-400); POLYS 83.5 %; RBC 2.63 mil/uL (4.20-5.00); RDW-CV 12.6 % (10.5-14.5); WBC 7.5 thou/uL (4.0-11.0)
[2019-01-03 07:20] VITALS: BP 151/87
--- NOTE | 2019-01-03 09:08 | PATH ---
[address] [address] PATHOLOGY RPT PROCEDURE Name: CATINA HARPER Room: [address] IN M.R.#: [id number] Admission: 12/29/18 Date of : 41 Discharge: Report #: [id number] Path Case #: [id number] [facility] Accession Number: [id number] . 01 Material submitted: . PART A: cecum - CECAL ULCERS PART B: colon - ASCENDING COLON ULCERS. Modifiers: ascending PART C: colon - PROXIMAL TRANSVERSE COLON ULCERS. Modifiers: proximal, transverse PART D: colon - TRANSVERSE COLON ULCERS. Modifiers: transverse PART E: colon - DISTAL TRANSVERSE COLON ULCERS. Modifiers: distal, transverse PART F: colon - DESCENDING COLON ULCERS. Modifiers: descending PART G: sigmoid colon - SIGMOID COLON ULCERS PART H: rectum - RECTAL ULCERS . 01 Clinical history: . A-H: Suspect Crohn's . 02 Diagnosis: A and H. Cecal ulcers and rectal ulcers: - Moderate non-specific active colitis, negative for granulomas, viral inclusions and dysplasia. See comment. . B, D and E. Ascending colon ulcers, transverse colon ulcers and distal transverse colon ulcers: - Severe active colitis with ulceration and suggestion of chronic colitis, negative for granulomas, viral inclusions and dysplasia. See comment. . C, F and G. Proximal transverse colon ulcers, descending colon ulcers and sigmoid colon ulcers: - Chronic active colitis with ulceration, negative for granulomas, viral inclusions and dysplasia. See comment. LB/12/31/2018 . 02 Comment: All of the biopsies show varying degrees of active inflammation seen most subtly in the cecal and rectal biopsies (A and H) and the ascending colon, transverse colon and distal transverse colon biopsies (B, D and E) show similar inflammatory features to the remaining biopsies (C, F and G) with evidence of discrete ulceration and inflammation into submucosal tissues although these former, (B, D and E) show no significant crypt distortion and, at most, minimal basal lymphoplasmacytosis and the latter (proximal transverse, descending colon and sigmoid colon ulcers; C, F and G) also show evidence of basal lymphoplasmacytosis. Careful search reveals no granulomata and no viral inclusions in any of the biopsies. The histologic findings are compatible with Crohn's disease in the [place] [address] PATHOLOGY RPT PROCEDURE Name: CATINA HARPER Mychal Room: [address] IN M.R.#: [id number] Admission: 12/29/18 Date of : 41 Discharge: Report #: [id number] Path Case #: [id number] (KAI/db; 12/31/2018) . 02 Electronically signed: . Paul Malone MD, Pathologist NPI- [id number] . 01 Gross description: . A. Received in formalin labeled "Catina Harper, cecal ulcers biopsies, suspect Crohn's," is a single segment of walter soft tissue measuring 0.6 cm in maximum dimension. The specimen is entirely submitted in cassette A1. After thorough examination of the specimen container, no additional tissue was recovered. . B. Received in formalin labeled "Catina Harper, ascending colon ulcers, suspect Crohn's," are 2 segments of walter soft tissue measuring 0.5 x 0.2 x 0.1 cm in aggregate dimensions and ranging from 0.2 to 0.3 cm in maximum dimension. The specimen is submitted entirely in cassette B1. . C. Received in formalin labeled "Catina Harper, proximal transverse colon ulcers biopsies, suspect Crohn's," are 2 segments of walter soft tissue measuring 0.9 x 0.2 x 0.1 cm in aggregate dimensions and ranging from 0.4 to 0.5 cm in maximum dimension. The specimen is submitted entirely in cassette C1. . D. Received in formalin labeled "Catina Harper, transverse colon ulcers biopsies, suspect Crohn's," are 2 segments of walter soft tissue measuring 0.5 x 0.2 x 0.1 cm in aggregate dimensions and ranging from 0.2 to 0.3 cm in maximum dimension. The specimen is submitted entirely in cassette D1. . E. Received in formalin labeled "Catina Harper, distal transverse colon ulcers biopsies, suspect Crohn's," is a single segment of walter soft tissue measuring 0.5 cm in maximum dimension. The specimen is entirely submitted in cassette E1. After thorough examination of the specimen container, no additional tissue was recovered. . F. Received in formalin labeled "Catina Harper, descending colon ulcers biopsies, suspect Crohn's," is a single segment of walter soft tissue measuring 0.5 cm in maximum dimension. The specimen is entirely submitted in cassette F1. After thorough examination of the specimen container, no additional tissue was recovered. . G. Received in formalin labeled "Catina Harper, sigmoid colon ulcers biopsies, suspect Crohn's," is a single segment of walter soft tissue measuring 0.6 cm in maximum dimension. The specimen is entirely submitted in cassette G1. After thorough examination of the specimen container, no additional tissue was recovered. . H. Received in formalin labeled "Catina Harper, rectal ulcers biopsies, suspect Crohn's," is a single segment of walter soft tissue measuring 0.5 [place] [address] PATHOLOGY RPT PROCEDURE Name: CATINA HARPER Room: [address] IN [facility]#: [id number] Admission: 12/29/18 Date of : 41 Discharge: Report #: [id number] Path Case #: [id number] in maximum dimension. The specimen is entirely submitted in cassette H1. After thorough examination of the specimen container, no additional tissue was recovered. (TSD; 12/30/2018) TOB/TOB . 02 Pathologist provided ICD-10: K52.9, K63.3, R10.9, K92.2 . 02 CPT . 965261, 373402, 630681, 910380, 340876, 346148, [id number], [id number] Specimen Comment: A courtesy copy of this report has been sent to Specimen Comment: [phone], , . Specimen Comment: Report sent to ,DR CHAVES / DR BEST Performed at: [address], [place], [place] [id number] MD León Lindsey MD Phone: [phone] Performed at: 02 [facility] [address], [place], [place] [id number] MD Paul Malone MD Phone: [phone]
[2019-01-03 17:13] VITALS: BP 159/91
--- NOTE | 2019-01-03 17:29 | NUR ---
pt remained alert and oriented, forgetful at times. pt c/o pain, meds given as ordered. fall risk precautions in place. hourly rounding completed. blanca called and would like to be updated daily if possible. will continue to monitor.
[2019-01-03 21:09] VITALS: BP 147/73
--- NOTE | 2019-01-04 06:49 | NUR ---
PATIENT HAS SLEPT WELL THROUGHOUT THE NIGHT. VSS ON RA. NO C/O PAIN. PATIENT HAS HAD BLOODY STOOLS DURING THE NIGHT. PATIENT IS UP SBA WITH WALKER TO BATHROOM. RIGHT UPPER ARM SINGLE LUMEN PICC-SL. IV RIGHT FOREARM-SL. IV ABT GIVEN WITHOUT ANY ADVERSE SIDE EFFECTS NOTED. PATIENT INSTRUCTED TO USE CALL LIGHT WHEN NEEDING ASSISTANCE. HOURLY ROUNDS MADE. FALL PRECAUTIONS IN PLACE. WILL CONTINUE WITH PLAN OF CARE AND NURSING TO MONITOR.
[2019-01-04 07:08] VITALS: BP 147/71
[2019-01-04 10:02] LABS: HEMATOCRIT 22.3 % (37.0-47.0); HEMOGLOBIN 7.4 gm/dL (12.0-15.0); MCH 30.8 pg (26.0-34.0); MCHC 33.3 g/dL (28.0-37.0); MCV 92.5 fL (80.0-100.0); MPV 5.9 fl. (7.2-11.1); NUCLEATED RBCS 0 /100WBC; PLATELET COUNT* 313 thou/uL (150-400); RBC 2.41 mil/uL (4.20-5.00); RDW-CV 12.5 % (10.5-14.5)
[2019-01-04 10:06] LABS: CALCIUM 7.7 mg/dL (8.5-10.1); CREATININE 0.9 mg/dL (0.6-1.3); POTASSIUM 3.1 mmol/L (3.5-5.1)
[2019-01-04 10:44] LABS: ABSOLUTE LYMPHOCYTES 0.8 thou/uL (0.8-5.3); ABSOLUTE MONOCYTES 0.2 thou/uL (0.0-1.2); PLATELET ESTIMATE ADEQUATE
[2019-01-04 10:45] LABS: ANISOCYTOSIS 1+; POIKILOCYTOSIS 1+
--- NOTE | 2019-01-04 14:58 | NUR ---
ASSESSMENT COMPLETE. PT ALERT AND ORIENTED X4. PT REPORTS FEELING SLEEPY TODAY. PT UP IN CHAIR FOR PART OF THE DAY. PT/OT DONE. PT UP FREQUENTLY DURING THE DAY WITH BLOODY STOOLS. PT INCONT AT TIMES, BRIEF IN PLACE. PT IS WEAK AND UNSTEADY, BED ALARM IN PLACE. GI FOLLOWING. HGB 7.4 THIS AM, REPEAT H&H THIS EVENING. PT IS ON ROOM AIR, VSS. SKIN W/D/I. K+ REPLACED. PT HAS PICC IN RIGHT UPPER ARM, FLUSHES AND DRAWS. PT IS UP ONE ASSIST WITH WALKER. PT IS SLEEPING. SEE ASSESSMENT AND VITALS FOR OTHER DETAILS. CALL LIGHT WITHIN REACH. WILL CONTINUE PLAN OF CARE
[2019-01-04 15:57] VITALS: BP 153/65
[2019-01-04 16:16] LABS: HEMATOCRIT 22.3 % (37.0-47.0); HEMOGLOBIN 7.4 gm/dL (12.0-15.0)
--- NOTE | 2019-01-04 16:29 | NUR ---
FOLLOWING FOR DISCHARGE, PT.WALKING WITH THERAPY, 200 FT.WITH FWW. SHE HAS A WALKER AT HOME. HGB 7.4 TODAY. WILL DISCHARGE HOME WITH DAUGHTER AND FAMILY AND [facility] WHEN BLOOD COUNT IS STABLE.
[2019-01-05 04:53] LABS: ABSOLUTE LYMPHOCYTES 0.9 thou/uL (0.8-5.3); ABSOLUTE MONOCYTES 0.2 thou/uL (0.0-1.2); ABSOLUTE NEUTROPHILS 7.3 thou/uL (1.6-8.1); HEMATOCRIT 21.3 % (37.0-47.0); HEMOGLOBIN 7.3 gm/dL (12.0-15.0); LYMPHOCYTES 10.5 %; MCH 31.5 pg (26.0-34.0); MCHC 34.3 g/dL (28.0-37.0); MCV 91.8 fL (80.0-100.0); MONOCYTES 2.4 %; NUCLEATED RBCS 0 /100WBC; PLATELET COUNT* 278 thou/uL (150-400); POLYS 87.1 %; RBC 2.32 mil/uL (4.20-5.00); RDW-CV 12.8 % (10.5-14.5); WBC 8.4 thou/uL (4.0-11.0)
--- NOTE | 2019-01-05 06:06 | NUR ---
PATIENT HAS SLEPT WELL THROUGHOUT THE NIGHT. VSS ON RA. MEDICATIONS GIVEN ORDERED AND CHARTED. RIGHT UPPER PICC IS SL. RIGHT FOREARM-SL. FALL PRECAUTIONS IN PLACE. HOURLY ROUNDS MADE. WILL CONTINUE WITH PLAN OF CARE AND NURSING TO MONITOR.
[2019-01-05 08:15] VITALS: BP 156/77
[2019-01-05] MEDS ORDERED: PREDNISONE 10 M10 MG PO (09:36)
[2019-01-05 15:06] LABS: HEMATOCRIT 22.3 % (37.0-47.0); HEMOGLOBIN 7.5 gm/dL (12.0-15.0)
[2019-01-05 16:00] VITALS: BP 148/79
[2019-01-05 16:40] VITALS: BP 152/61
--- NOTE | 2019-01-05 17:31 | NUR ---
PATIENT RESTING IN BED. PATIENT IS UP STANDBY ASSIST WITH WALKER. PATIENT HAS POOR APPETITE THIS EVENING AND REFUSED DINNER BUT ATE ABOUT 20-25% ON BREAKFAST AND LUNCH. PATIENT HAS INCREASED PAIN THIS EVENING, HYDROCODONE AND BENTYL GIVEN. PATIENT ALSO HAD COMPLAINTS OF LEFT SIDE CHEST PAIN THIS EVENING, EKG COMPLETED AND DR MARTINEZ NOTIFIED, ORDERS RECEIVED.
[2019-01-05 19:45] VITALS: BP 132/67
[2019-01-06] VITALS: BP 165/84
[2019-01-06 04:00] VITALS: BP 158/67
[2019-01-06 05:15] LABS: HEMATOCRIT 22.1 % (37.0-47.0); HEMOGLOBIN 7.4 gm/dL (12.0-15.0)
[2019-01-06 05:33] LABS: CREATININE 0.9 mg/dL (0.6-1.3); POTASSIUM 4.4 mmol/L (3.5-5.1)
--- NOTE | 2019-01-06 05:37 | NUR ---
PT SLEPT MOST OF SHIFT. ASSESSMENT DOCUMENTED. MEDS GIVEN PER E-MAR. PICC PATENT. NO REPORTS OF PAIN OR NAUSEA THIS SHIFT. PT HAD ONE DARK COLORED BM. WILL CONTINUE WITH PLAN OF CARE.
[2019-01-06 08:00] VITALS: BP 134/64
--- NOTE | 2019-01-06 09:59 | EKG ---
[place] [address] ELECTROCARDIOGRAM REPORT Name: CATINA HARPER Room: [address] ADM IN .R.#: [id number] Admission: 12/29/18 Attend Phys: Leena Carroll MD Discharge: Date of : 41 Report #: [id number] THIS REPORT FOR: //name// [facility] Test Date: 2019-01-05 Test Time: 17:16:03 Pat Name: CATINA HARPER Department: Room: [address] Gender: F Director Blood Bank: ELOISA : 1945 Requested By: Zach Shea Order Number: [id number] Brent MD: Braden Vivar Measurements Intervals [place] Rate: 66 P: 65 CO: 144 QRS: 32 QRSD: 101 T: 41 QT: 449 QTc: 471 Interpretive Statements Sinus rhythm Compared to ECG 12/29/2018 08:28:42 Prolonged QT interval no longer present Electronically Signed On 01-06-2019 9:58:50 CDT by Braden Vivar [email or web address] <ELECTRONICALLY SIGNED> By: Braden Vivar MD, [facility] 01/06/19 0958 D: 08/1715 15 Braden Vivar MD, FACC /EPI
--- NOTE | 2019-01-06 11:03 | NUR ---
CONTINUE TO FOLLOW, SPOKE WITH DTR, DISCUSSED HOME WITH HH VS SNF. SHE IS INTERESTED IN SNF AND PT GETTING STRONGER. DISCUSSED OPTIONS IN INSURANCE NETWORK, CHOSE [facility]. CALLED AND FAXED REFERRAL TO [facility]. DR DIALLO ABLE TO TALK WITH DTR OVER THE PHONE ALSO. AWAIT CALL BACK FROM [facility]
[2019-01-06] MEDS ORDERED: IRON325 PO (13:17)
[2019-01-06] MEDS ORDERED: PREDNISONE 10 M10 MG PO (13:17)
[2019-01-06 15:18] VITALS: BP 134/64
[2019-01-06 16:26] VITALS: BP 134/64
--- NOTE | 2019-01-06 16:26 | NUR ---
PATIENT UP TO CHAIR FOR MEALS THIS SHIFT. C/O ABD CRAMPING THIS AFTERNOON, PRN BENTLY GIVEN ORDERED. PATIENT OBSERVED TO BE SLEEPING AFTER GIVEN. PATIENT DID HAVE VERY SMALL BM THIS AFTERNOON, MINIMAL AMOUNT OF BLOOD WAS NOTED. REPORT CALLED TO [facility] FOR [facility]GE. REPORT CALLED TO [facility]. PICC LINE WAS DC'D PER ORDERS. PATIENT DID BEGIN TO DRY HEAVE WHEN WHEELCHAIR VAN HERE FOR PICKUP, DR. DIALLO NOTIFIED THAT PATIENT DRY HEAVING AND LARGE BLACK STOOL NOTED. ORDERS FOR PRN [facility] FOR HOSPITAL AND NURSING FACILITY. PATIENT TAKEN OUT VIA WHEELCHAIR VAN WITH ALL BELONGINGS.
[2019-01-07 16:09] LABS: HEPATITIS B SURFACE AG Negative (Negative)
== END 2019-01-06 16:30 | DRG 385 ==
LOC: M.ERS 08:12 → M.TBA-ER 09:02 → M.ORTHSURG 09:02
PROVIDERS: Internal Medicine; Internal Medicine Infectious Disease; Nurse Practitioner Adult Health; Personal Emergency Response Attendant; ADMIT Internal Medicine
PROC: 0DBK8ZX Excision of Ascending Colon, Via Natural or Artificial Opening Endoscopic, Diagnostic (ICD-10-PCS; 2018-12-30)
PROC: 0DBP8ZX Excision of Rectum, Via Natural or Artificial Opening Endoscopic, Diagnostic (ICD-10-PCS; 2018-12-30)
PROC: 0DBL8ZX Excision of Transverse Colon, Via Natural or Artificial Opening Endoscopic, Diagnostic (ICD-10-PCS; 2018-12-30)
PROC: 0DBM8ZX Excision of Descending Colon, Via Natural or Artificial Opening Endoscopic, Diagnostic (ICD-10-PCS; 2018-12-30)
PROC: 0DBH8ZX Excision of Cecum, Via Natural or Artificial Opening Endoscopic, Diagnostic (ICD-10-PCS; 2018-12-30)
PROC: 0DBN8ZX Excision of Sigmoid Colon, Via Natural or Artificial Opening Endoscopic, Diagnostic (ICD-10-PCS; 2018-12-30)
PROC: 02HV33Z Insertion of Infusion Device into Superior Vena Cava, Percutaneous Approach (ICD-10-PCS; principal; 2018-12-31)
PROC: B54MZZA Ultrasonography of Right Upper Extremity Veins, Guidance (ICD-10-PCS; principal; 2018-12-31)
DX: K50.10 Crohn's disease of large intestine without complications (principal); E43 Unspecified severe protein-calorie malnutrition; K57.31 Diverticulosis of large intestine without perforation or abscess with bleeding; G93.41 Metabolic encephalopathy; M48.50XA Collapsed vertebra, not elsewhere classified, site unspecified, initial encounter for fracture; D62 Acute posthemorrhagic anemia; K63.3 Ulcer of intestine; Z68.1 Body mass index [BMI] 19.9 or less, adult; E03.9 Hypothyroidism, unspecified; M19.91 Primary osteoarthritis, unspecified site; N18.3 Chronic kidney disease, stage 3 (moderate); F03.90 Unspecified dementia, unspecified severity, without behavioral disturbance, psychotic disturbance, mood disturbance, and anxiety; E87.6 Hypokalemia; D64.9 Anemia, unspecified; K60.3 Anal fistula; K64.4 Residual hemorrhoidal skin tags; I12.9 Hypertensive chronic kidney disease with stage 1 through stage 4 chronic kidney disease, or unspecified chronic kidney disease; E78.5 Hyperlipidemia, unspecified; K52.9 Noninfective gastroenteritis and colitis, unspecified; M81.0 Age-related osteoporosis without current pathological fracture; R93.3 Abnormal findings on diagnostic imaging of other parts of digestive tract; R10.9 Unspecified abdominal pain; G89.29 Other chronic pain; E86.0 Dehydration; Z85.3 Personal history of malignant neoplasm of breast; Z90.710 Acquired absence of both cervix and uterus; Z88.6 Allergy status to analgesic agent; Z80.3 Family history of malignant neoplasm of breast; Z79.82 Long term (current) use of aspirin; Z79.899 Other long term (current) drug therapy; Z79.1 Long term (current) use of non-steroidal anti-inflammatories (NSAID)

== ENCOUNTER → 2019-04-05 | Outpatient (CLI) | payer OTHER ==
[~2019-04-05] MED LIST changes: +IRON325 PO; +PREDNISONE 10 M10 MG PO
[2019-04-05 12:43] LABS: ABSOLUTE LYMPHOCYTES 1.3 thou/uL (0.8-5.3); ABSOLUTE MONOCYTES 0.2 thou/uL (0.0-1.2); ABSOLUTE NEUTROPHILS 9.2 thou/uL (1.6-8.1); BASOPHILS 0.3 %; EOSINOPHILS 0.1 %; HEMATOCRIT 33.3 % (37.0-47.0); HEMOGLOBIN 11.2 gm/dL (12.0-15.0); MCH 32.9 pg (26.0-34.0); MCHC 33.7 g/dL (28.0-37.0); MCV 97.7 fL (80.0-100.0); MPV 6.4 fl. (7.2-11.1); NUCLEATED RBCS 0 /100WBC; PLATELET COUNT* 181 thou/uL (150-400); POLYS 85.6 %; RBC 3.41 mil/uL (4.20-5.00); RDW-CV 16.3 % (10.5-14.5); WBC 10.8 thou/uL (4.0-11.0)
[2019-04-05 13:05] LABS: CALCIUM 8.3 mg/dL (8.5-10.1); CREATININE 0.7 mg/dL (0.6-1.3); POTASSIUM 3.9 mmol/L (3.5-5.1); TOTAL BILIRUBIN 0.6 mg/dL (<0.1-1.0); TOTAL PROTEIN 6.2 g/dL (6.4-8.2)
[2019-04-05 13:39] LABS: PLATELET ESTIMATE ADEQUATE
[2019-04-05 13:49] LABS: ESR (SEDRATE) 10 mm/hr (0-30)
== END ==
LOC: M.LAB 12:05
PROVIDERS: Internal Medicine Gastroenterology
DX: K50.90 Crohn's disease, unspecified, without complications (principal)